=== PATIENT | female | born 1975 | race Caucasian/White ===

== ENCOUNTER 2021-03-28 09:15 | Outpatient (REF) | payer OTHER, SELFPAY ==
[2021-03-28 09:54] LABS: IDNOW Serial# 9DD0AD1C
[2021-03-28 09:55] LABS: COVID-19 Test Negative (Negative)
== END 2021-03-28 09:16 | disposition home or self-care (01) ==
LOC: HO.LAB 09:15
PROVIDERS: Visit Provider Internal Medicine
DX: Z20.822 Contact with and (suspected) exposure to COVID-19 (principal)
CPT/HCPCS: 36415; 87635; C9803

== ENCOUNTER 2023-06-20 11:06 | Emergency (ER) | payer OTHER, SELFPAY ==
--- NOTE | ~2023-06-20 | US_ITS ---
EXAMINATION: US ABDOMEN LIMITED CLINICAL INFORMATION: Right upper quadrant pain. COMPARISON: None available. TECHNIQUE: Real-time imaging of the right upper quadrant abdominal viscera. FINDINGS: PANCREAS: The visualized portion of the pancreas head and body are normal, portion of the pancreatic body and tail, not visualized are obscured by bowel gas. LIVER: Normal. The liver is normal in size. The liver contour is normal. Increased echogenicity of the liver parenchyma, this can be seen in the setting of hepatic steatosis or liver parenchymal disease. No focal hepatic lesion. There is no intrahepatic biliary duct dilatation seen. GALLBLADDER: Normal. The gallbladder is physiologically distended without evidence of stones, sludge, polyps, wall thickening or pericholecystic fluid. COMMON BILE DUCT: Normal in caliber measuring 0.7 cm in diameter. RIGHT KIDNEY: Normal. No hydronephrosis. No renal calculi or focal parenchymal lesions. The kidney measures 10.2 cm in maximum dimension. FREE FLUID: None. US/US abdomen limited IMPRESSION: * No ultrasound evidence of gallbladder disease or gallstones. * Increased echogenicity of the liver parenchyma, this can be seen in the setting of hepatic steatosis or liver parenchymal disease.
--- NOTE | ~2023-06-20 | XR_ITS ---
EXAMINATION: XR chest 1V CLINICAL INFORMATION: Reason for Exam pain COMPARISON: None TECHNIQUE: XR chest 1V Tubes and lines: None Lungs and pleura: Both lungs are clear. Heart and mediastinum: The mediastinum is within normal limits.. Bones/soft tissue: Skeletal structures included are normal for patient's age. XR/XR chest 1V IMPRESSION: No radiographic evidence of acute cardiopulmonary disease.
--- NOTE | 2023-06-20 11:13 | PC.NURSE ---
bilingual interpreter called
--- NOTE | 2023-06-20 11:15 | ED.GENADULT ---
HPI - General Adult General Chief complaint: Abdominal Pain Stated complaint: abd pain Time Seen by Provider: 06/20/23 11:31 Source: patient Mode of arrival: ambulatory Limitations: no limitations History of Present Illness HPI narrative: 47 yo female with PMH of GERD, CTR - recently by Dr. Hines, who notes she has had R sided abdominal pain that feels pulsating at times with heat then she notes it hurts to move or touch. No rash, no n/v/d. She just had RUQ US by her PCP this week and it showed fatty liver but nothing else. She has had hysterectomy and gallbladder removal. She notes it hurts to get up from the bed in her abdomen but denies heavy lifting or trauma. She states she just woke up like this on Thursday. MD complaint: abdominal pain Onset (ago): day(s) (6) Location: abdomen Radiation: non-radiation Severity: moderate Quality: stabbing, aching and other (burning) Pain Consistency: intermittent Relieving factors: rest Exacerbating factors: movement Associated symptoms: nausea/vomiting Treatments prior to arrival: none Related Data Allergies Allergy/AdvReac Type Severity Reaction Status Date / Time ondansetron [From Zofran] Allergy Intermediate Rash Verified 06/20/23 11:17 Review of Systems Review of Systems: Constitutional : No Weight loss, No Fever, No Chills ENT/Mouth : No sore throat, No Rhinorrhea Eyes: No Swelling, No Redness Cardiovascular : No Chest Pain, No SOB, NoEdema Respiratory : No Cough, No Sputum, No Wheezing Gastrointestinal : Positive Nausea, no Vomiting, no Diarrhea, positive abdominal Pain, No Hematochezia, No Melena Genitourinary : No Dysuria, No Urinary Frequency, No Hematuria, No Urgency Musculoskeletal : No joint pain, No Myalgias, No Joint Swelling Skin : No Skin Lesions, No rash Neuro : No Weakness, No Numbness, No Dizziness, No Headache Psych : No Anxiety/Panic, No Depression Heme/Lymph: No Bruising, No Lymphadenopathy Endocrine : No Polyuria, No Polydipsia All other systems reviewed and are negative. [facility] Social History Social History Advance Directives: No Physical Exam ED Vital Signs: Vital Signs - 24 hr 06/20/23 11:17 06/20/23 12:00 Temperature 97.1 F Pulse Rate 89 Respiratory Rate 18 20 Blood Pressure 108/71 102/55 L Pulse Oximetry 99 98 Oxygen Delivery Method Room Air Room Air BMI result Body Mass Index 30.4 Appearance: Alert. Oriented X3. No acute distress. Eyes: Pupils equal, round and reactive to light. ENT: Pharynx normal. Neck: Normal inspection. Neck supple. CVS: Normal heart rate and rhythm. Pulses normal. Respiratory: No respiratory distress. Breath sounds normal. Abdomen: Soft and ttp on R abdomen no rash or mass felt, no rebound no pulsations felt Skin: Skin warm and dry. Normal skin color. Normal skin turgor. Extremities: No lower extremity edema. No calf ttp Neuro: Oriented X 3. No motor deficit. No sensory deficit. Course Course Course Narrative: This is an RME: Additional HPI, ROS, PE not included below will be deferred to primary provider. This is a [id number] presenting to the emergency department with complaints of right sided abdominal pain x 1 week. Patient reports that the pain occasionally radiates to her umbilicus and pulse aids.She went to a PCP's office where they performed an ultrasound which revealed a fatty liver but was told this wouldn't cause her to have this pain she was started on Bentyl. She states that she has had nausea, no vomiting. One episode of diarrhea on , otherwise is having normal bowel movements. Had a cholecystectomy. Abdomen is soft nontender. No urinary symptoms. Plan: Labs, UA, ultrasound Medications Administered Discontinued Medications Generic Name Dose Route Start Last Admin Trade Name Freq PRN Reason Stop Dose Admin Morphine Sulfate 15 mg 06/20/23 11:45 06/20/23 11:52 Morphine Sulfate Immed Release 15 Mg Tablet PO 06/20/23 11:46 15 mg ONCE ONE Administration Medical Decision Making Medical Decision Making [facility] Narrative: 47 yo female with PMH of fibromyalgia here with c/o 1 week or R sided abdominal pain and nausea but no other symptoms not pleuritic no CP/SOB no URI symptoms no change in stool notes it hurts to move. She notes no trauma to abdomen. She notes this has never happened before. Just told she has a fatty liver. Differential Diagnosis Differential Diagnoses: The differential diagnosis associated with the presentation includes renal colic, abdominal wall strain, abdominal pain Admission/Observation Consideration of admission/observation: Escalation of care including admission/observation considered work up negative at this time no RLQ to suggest appendicitis on repeat abdominal exams Lab Data MDM Lab Attestation statement: I reviewed the patient's lab results. 06/20/23 11:28 06/20/23 11:28 Labs: Lab Results 06/20/23 06/20/23 06/20/23 Range/Units 11:28 11:54 13:55 WBC 3.8 L (4.8-10.8) X10*3/uL RBC 4.76 (4.20-5.50) X10*6/uL Hgb 14.4 (12.0-16.0) g/dl Hct 42.7 (37.0-47.0) % MCV 89.7 (80.0-98.0) fL MCH 30.3 (27.0-33.0) pg MCHC 33.7 (31.0-35.0) g/dl RDW 12.7 (11.0-16.0) % Plt Count 254 (160-400) X10*3/uL MPV 9.9 (9.4-12.3) fL Immature Gran % (Auto) 0.0 (0.0-0.4) % Neut % (Auto) 48.3 (45-73) % Lymph % (Auto) 42.5 H (20-40) % [place] % (Auto) 8.4 (2-11) % Eos % (Auto) 0.3 (0-4) % Baso % (Auto) 0.5 (0-2) % Lymph # (Auto) 1.6 (1.2-4.9) X10*3/uL [place] # (Auto) 0.3 (0.1-1.2) X10*3/uL Eos # (Auto) 0.0 (0.0-0.4) X10*3/uL Baso # (Auto) 0.0 (0.0-0.2) X10*3/uL Abs Immat Gran (auto) 0.00 (0.00-0.03) X10*3/uL Absolute Neuts (auto) 1.8 L (2.0-8.3) x10*3/uL Absolute Nucleated RBC 0.000 (0.0-0.012) X10*3/uL Nucleated RBC % (auto) 0.0 (0.0-0.2) /100WBC D-Dimer High Sensitivty < 150 NG/ML Sodium 139 (135-145) mmol/L Potassium 3.7 (3.3-5.1) mmol/L Chloride 106 (96-108) mmol/L Carbon Dioxide 28 (22-29) mmol/L Anion Gap 9 L (12-20) BUN 8 L (9-16) mg/dL Creatinine 0.82 (0.5-1.4) mg/dL Estim Creat Clear Calc 83.7 Estimated GFR > 60 Random Glucose 98 (60-115) mg/dL Calcium 9.2 (8.4-10.2) mg/dL Total Bilirubin 0.8 (0.0-1.0) mg/dL Direct Bilirubin 0.2 (0.0-0.5) mg/dL AST 15 (5-31) U/L ALT 9 (0-31) U/L Alkaline Phosphatase 62 (39-117) U/L Total Protein 7.5 (6.5-8.0) g/dL Albumin 4.2 (3.5-5.0) g/dL Lipase 14 (8-78) U/L Urine Color Yellow Urine Appearance Clear Urine pH 5.5 (5.0-9.0) Ur Specific Rosie 1.025 (1.005-1.025) Urine Protein Trace (Neg-Trace) mg/dL Urine Glucose (UA) Negative (Negative) mg/dL Urine Ketones Negative (Negative) mg/dL Urine Blood Moderate (2+) H (Negative) Urine Nitrite Negative (Negative) Ur Leukocyte Esterase Negative (Negative) Urine RBC 11-20 H (0-2) /HPF Urine WBC 0-5 (0-5) /HPF Ur Squamous Epith Cells 11-20 (0-2) /HPF Urine Bacteria 1+ (None Seen) Hyaline Casts 0-2 (0-2) /LPF Influenza Type A (PCR) NEGATIVE (Negative) Influenza Type B (PCR) NEGATIVE (Negative) RSV RNA Qual (PCR) NEGATIVE (Negative) SARS-CoV-2 RNA (RT-PCR) NEGATIVE (Negative) Independent Interpretation I performed an independent interpretation of an: Plain X-Ray (no pneumonia) and Ultrasound (fatty liver) Radiology Impression Discussion of test interpretation with radiology: I have reviewed the radiologist's reading. External Record Review External record reviewed: Outpatient record Discharge Plan Discharge Clinical Impression: Abdominal pain Patient Disposition: Home, Self-Care Instructions: Abdominal Pain (ED) Additional Instructions: return for worsening pain, fevers, vomiting, diarrhea, please follow up with your doctor next week. you had trace blood in your urine but no stones in the kidney. test of the liver and pancreas were normal. no blood clot, chest xray was normal Si regresa si el dolor empeora, tiene fiebre, v?lindsey o diarrea, consulte con orta m?dico la pr?xima semana. ten?a trazas de tyler en la orina vale no ten?a c?lculos en el ri??n. Las pruebas del h?gado y del p?ncreas fueron normales. sin co?gulos de tyler, la radiograf?a de t?rax fue normal Print Language: Polish
[2023-06-20 11:17] VITALS: BP 108/71; PULSE 89; RESP 18; TEMP 36.2; O2SAT 99; BMI 30.4
[2023-06-20 11:34] LABS: MANUAL DIFF FLAG NO
[2023-06-20 11:35] LABS: Basophils Percent Auto 0.5 % (0-2); Eosinophils Percent Auto 0.3 % (0-4); Hematocrit 42.7 % (37.0-47.0); Hemoglobin 14.4 g/dl (12.0-16.0); Lymphocytes Absolute Auto 1.6 X10*3/uL (1.2-4.9); Lymphocytes Percent Auto 42.5 % (20-40); Mean Corpuscular HGB Conc 33.7 g/dl (31.0-35.0); Mean Corpuscular Hemoglobin 30.3 pg (27.0-33.0); Mean Corpuscular Volume 89.7 fL (80.0-98.0); Mean Platelet Volume 9.9 fL (9.4-12.3); Monocytes Absolute Auto 0.3 X10*3/uL (0.1-1.2); Monocytes Percent Auto 8.4 % (2-11); Neutrophils Absolute Auto 1.8 x10*3/uL (2.0-8.3); Neutrophils Percent Auto 48.3 % (45-73); Platelet Count 254 X10*3/uL (160-400); Red Blood Count 4.76 X10*6/uL (4.20-5.50); Red Cell Distribution Width 12.7 % (11.0-16.0); White Blood Count 3.8 X10*3/uL (4.8-10.8)
--- NOTE | 2023-06-20 11:36 | PC.NURSE ---
Patient reports woe up 1 week ago with right sided abdominal pain. Patient denies heavy lifting but states recently had right hand carpel tunnel system. Reports some nausea but denies sob, chest pain, or vomiting or diarrhea.
[2023-06-20 11:51] LABS: Alanine Aminotransferase 9 U/L (0-31); Albumin Level 4.2 g/dL (3.5-5.0); Alkaline Phosphatase 62 U/L (39-117); Anion Gap 9 (12-20); Aspartate Amino Transferase 15 U/L (5-31); Bilirubin Direct 0.2 mg/dL (0.0-0.5); Bilirubin Total 0.8 mg/dL (0.0-1.0); Blood Urea Nitrogen 8 mg/dL (9-16); Calcium 9.2 mg/dL (8.4-10.2); Carbon Dioxide 28 mmol/L (22-29); Chloride 106 mmol/L (96-108); Creatinine Clr Calc Pharmacy 83.7; Estimated Glomerular Filt Rate > 60; Glucose Random 98 mg/dL (60-115); Lipase 14 U/L (8-78); Potassium 3.7 mmol/L (3.3-5.1); Sodium 139 mmol/L (135-145); Total Protein 7.5 g/dL (6.5-8.0)
[2023-06-20] MEDS: Morphine Sulfate Immed Release 15 MG TABLET PO (11:52)
[2023-06-20 12:00] VITALS: BP 102/55; RESP 20; O2SAT 98
[2023-06-20 12:02] LABS: Appearance Urine Clear; Color Urine Yellow; Glucose Urine UA Negative (Negative); Leukocyte Esterase Urine Negative (Negative); Nitrite Urine Negative (Negative); PH 5.5 (5.0-9.0); Specific Gravity - Urine 1.025 (1.005-1.025); UMIC TRIGGER UACC YES; Urine Blood Moderate (2+) (Negative); Urine Ketones Negative (Negative); Urine Protein Trace mg/dL (Neg-Trace)
[2023-06-20 12:07] LABS: Bacteria Urine 1+ (None Seen); Hyaline Casts Urine 0-2 /LPF (0-2); WBC Urine 0-5 /HPF (0-5)
[2023-06-20 12:11] LABS: Influenza A PCR NEGATIVE (Negative); Influenza B PCR NEGATIVE (Negative); Resp Syncy Virus RNA Qual PCR NEGATIVE (Negative); SARS COV2 PCR INHOUSE NEGATIVE (Negative)
[2023-06-20 14:08] LABS: D Dimer High Sensitivity < 150 NG/ML
== END 2023-06-20 15:45 | disposition home or self-care (01) ==
PROVIDERS: Physician Assistant Medical; Emergency Provider Emergency Medicine; PCP Internal Medicine
DX: R10.9 Unspecified abdominal pain (principal); Z20.822 Contact with and (suspected) exposure to COVID-19; Z20.828 Contact with and (suspected) exposure to other viral communicable diseases; R11.0 Nausea; Z90.710 Acquired absence of both cervix and uterus; Z90.49 Acquired absence of other specified parts of digestive tract
CPT/HCPCS: 0241U; 36415; 71045; 76705; 80048; 80076; 81001; 81003; 83690; 85025; 85379; 99284

== ENCOUNTER 2025-01-24 16:05 | Outpatient (REF) | payer OTHER, SELFPAY ==
--- NOTE | ~2025-01-24 | CT_ITS ---
EXAMINATION: CT HEAD WITHOUT CONTRAST CLINICAL INFORMATION: Mild cognitive impairment COMPARISON: None available. TECHNIQUE: Contiguous axial imaging was performed from the skull base to vertex without intravenous administration of contrast. This CT examination was performed using dose optimization techniques as appropriate, variously including the following: *Automated exposure control *Adjustment of mA and/or kV according to patient size (this includes techniques or standardized protocols for targeted exams where dose is matched to indication/reason for exam; i.e. extremities or head) *Use of iterative reconstruction technique DLP: 755 mGY*cm FINDINGS: There is no acute ischemic change. There is no intracranial hemorrhage. There is no mass-effect or midline shift. Basal cisterns and ventricles are within normal limits for age/cerebral volume. Orbits are symmetrical and unremarkable. Paranasal sinuses and mastoid air cells are pneumatized. There are no bony abnormalities. CT/CT head/brain wo IV con IMPRESSION: No acute intracranial abnormality. Electronically signed by: Vivek Colby MD 01/24/2025 04:45 PM EDT
--- OUTSIDE RECORDS SUMMARY | 2025-01-24 18:56 | XMS_ITS | Clinical Summary ---
Author Organization 175 [facility] Address [address] [place] [address] Phone Care Team Providers Care Equipment Operating Engineer Name Role Phone Yeimy Hammond MD Primary Care Prov ider Allergies Active Allergy Reactions Criticality Noted Date Comments Ondansetron Rash 11/13/2021 IV only Medications busPIRone (BUSPAR) 10 mg tablet Take 1 tablet (10 mg total) by mouth 2 (two) times a day. 4 Active DULoxetine (CYMBALTA) [address] capsule Take 1 capsule (60 mg total) by mouth. 4 Active simethicone (MYLICON) 125 mg chewable tablet Chew 1 tablet (125 mg total). 3 Active sucralfate (CARAFATE) 100 mg/mL suspension Take 10 mL (1 g total) by mouth. 4 Active pregabalin (LYRICA) 100 mg capsule Take 1 capsule (100 mg total) by mouth. 4 Active pregabalin (LYRICA) 25 mg capsule 4 Active cholecalciferol (VITAMIN D-3) 50 mcg (2,000 unit) tablet Take 1 tablet (2,000 Units total) by mouth 1 (one) time each day. 90 tablet 1 4 Active diclofenac (VOLTAREN) 50 mg EC tabletIndicatio ns:Other articular cartilage disorders, left shoulder,Unspec ified disorder of synovium and tendon, left shoulder TAKE 1 TABLET BY MOUTH 2 TIMES DAILY FOR 90 DAYS. 60 tablet 2 5 Active lidocaine (LIDODERM) 5 % patch Remove & discard patch within 12 hours or as directed by MD.APPLY 1 TO 2 PATCHES TOPICALLY DAILY NEEDED FOR PAIN. REMOVE PATCHES AFTER 12 HRS 90 patch 1 5 Active pantoprazole (PROTONIX) 40 mg EC tablet Take 1 tablet (40 mg total) by mouth 1 (one) time each day. 90 tablet 1 5 Active famotidine (PEPCID) 20 mg tablet TAKE 1 TABLET BY MOUTH EVERYDAY AT BEDTIME 90 tablet 1 5 Active meclizine (ANTIVERT) 12.5 mg tablet Take 1 tablet (12.5 mg total) by mouth 3 (three) times a day if needed for dizziness. 90 tablet 5 Active SUMAtriptan (IMITREX) 25 mg tablet Take 1 tablet (25 mg total) by mouth 1 (one) time if needed for migraine. May repeat dose once in 2 hours if no relief. Do not exceed 2 doses in 24 hours. 9 tablet 5 5 Active Active Problems Problem Noted Date Diagnosed Date Urinary incontinence 10/27/2024 Postcoital bleeding 10/27/2024 History of laparoscopic cholecystectomy 10/28/19 25 H/O total hysterectomy 10/27/2024 Acne 10/27/2024 Back pain 10/27/2024 Abnormal uterine bleeding 10/27/2024 Dysmenorrhea 10/27/2024 Calcified granuloma of lung 08/12/2024 Adhesive capsulitis of left shoulder 06/06/2024 Vitamin D deficiency 05/24/2024 Chronic daily headache 05/24/2024 Migraines 05/19/2024 Assessment & Plan (12/26/2024 9:30 PM EDT): Manages with Sumatriptan, she follows with Neurology. Recommended to keep the appts with the specialist. Continue same medication. Fibromyalgia affecting multiple sites 02/09/2024 Overview (05/19/2024): Last Assessment & Plan: This exam was performed in conjunction with [facility] language services stenographer secretary Maddy #[id number]. Ms. Luis Alberto Duran is well-known to me from a C5-6, C6-7 artificial disc replacement with [employer] on 10/21/2021. She states that her neck pain only improved a little bit afterwards and she has had persistent pain bilaterally over to her shoulders with paresthesias in the arms and hands. Since then, she has had bilateral shoulder surgery, bilateral CTR and a left ulnar nerve release. She has been diagnosed with fibromyalgia and was started on gabapentin by Dr. Starr. She states that it made her quite drowsy and she could barely get out of bed so her dose has been reduced to 100 mg 3 times daily. She remains drowsy from it. Her recent upper extremity EMG on 12/03/2023 was essentially normal with no evidence of plexopathy, no cervical radiculopathy and no evidence of conduction slowing of the radial, medial or ulnar nerves. On exam, there is no step-off, deformity or tenderness along the posterior cervical spine. Rotation is 75 degrees to the right, 60 degrees to the left. Strength is 5 out of 5 though notably with poor effort particularly in tricep testing and handgrip. She rises from the chair easily, gait is steady, there were no myelopathic findings. Review of the cervical spine MRI dated 02/02/2024 shows magnetic artifact from the artificial disks at C5-6 and C6-7. There is maintenance of the normal lordosis with no evidence of disc herniation, central or foraminal stenosis. I reviewed this information in detail with Ms. Duong and do not believe she has a cervical radiculopathy. There is no residual spondylosis, she has great alignment and normal disc height at the untreated levels. I believe her residual pain is likely related to her fibromyalgia and recommended switching to Lyrica as the primary treatment. It is approved for fibromyalgia and should not cause the drowsiness she experiences with gabapentin. We discussed a schedule for transitioning off of gabapentin while starting the Lyrica. RICHI on CPAP 01/26/2024 Cubital tunnel syndrome of both upper extremitie s 02/03/2023 NAFLD (nonalcoholic fatty liver disease) 023 Neck pain 04/08/2022 Cervical spondylosis 08/12/2021 Overview (05/19/2024): Last Assessment & Plan: Ms. Sahu continues to suffer from neck pain. She was better after her two- level cervical arthroplasty but developed recurrent pain about 6 weeks ago. She really did not have any improvement with physical therapy. She is scheduled for right shoulder surgery on June 12 and waiting for an appointment from the orthopedic doctor for an EMG to evaluate her for carpal tunnel syndrome. She desires a new MRI but we both agreed that it made the most sense to wait until after her shoulder surgery. At this point even if it showed something, we would wait for any surgical treatment until after she heals from the shoulder surgery. She understands and will be patient. We will see her in follow-up at the end of June. If her symptoms persist we will get an MRI at that time. In the meantime I asked her to check with her orthopedic surgeon and if it was okay encouraged her to take a nonsteroidal for her neck pain. 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 12/19/2024 Subacromial impingement of right shoulder 08/08/2022 12/19/2024 Rotator cuff arthropathy of both shoulders 04/04/2022 12/19/2024 Encounters Date Type Department Care Team Description 01/16/2025 2:30 PM EDT Evaluation [facility] [address] [phone] Alex Joy PT Chronic pain of right knee 12/19/2024 11:30 AM EDT Office Visit Adult Medicine [address] [phone] Yeimy Larsen MD Chronic pain of right knee (Primary Dx); Migraine without aura and without status migrainosus, not intractable 11/29/2024 11:30 AM EDT Treatment [facility] [address] [phone] Adelina Choudhary, PT Biceps tendinitis of right upper extremity (Primary Dx); Adhesive capsulitis of left shoulder 11/23/2024 1:26 PM EDT - 11/23/2024 11:59 PM EDT Hospital Encounter Radiology Department - [address] [phone] Other abnormal and inconclusive findings on diagnostic imaging of breast Discharge Disposition: Home or Self Care 11/22/2024 11:30 AM EDT Treatment [facility] [address] [phone] Christopher Jhaveri, CARBIDE DIE MAKER Biceps tendinitis of right upper extremity (Primary Dx) 11/15/2024 11:00 AM EDT Treatment [address] [phone] Christopher Jhaveri, CARBIDE DIE MAKER Biceps tendinitis of right upper extremity (Primary Dx) 11/09/2024 12:30 PM EDT Treatment [facility] [address] [phone] Christopher Jhaveri, CARBIDE DIE MAKER Biceps tendinitis of right upper extremity (Primary Dx); Adhesive capsulitis of left shoulder 11/09/2024 11:15 AM EDT Office Visit Orthopedic Surgery [facility] [address] [facility] [address] [place] [phone] Amado Leblanc MD Left shoulder pain (Primary Dx); Biceps tendinitis of right upper extremity 10/31/2024 11:00 AM EDT Treatment [facility] [address] [phone] Adelina Choudhary, PT Biceps tendinitis of right upper extremity (Primary Dx); Adhesive capsulitis of left shoulder 10/29/2024 11:15 AM EDT Office Visit Walk-In Clinic - [address] [phone] Blair Reddy PA Non-recurrent acute suppurative otitis media of left ear without spontaneous rupture of tympanic membrane (Primary Dx) 10/28/2024 Telephone Adult Medicine [address] [phone] Mandie Laguerre PA 10/27/2024 8:30 AM EDT Office Visit Adult Medicine [address] [phone] Mandie Laguerre PA Routine general medical examination at a health care facility (Primary Dx); Need for pneumococcal vaccination; Memory loss, short term 10/26/2024 11:00 AM EDT Treatment [address] [phone] Jack Choudharyca, PT Biceps tendinitis of right upper extremity (Primary Dx); Adhesive capsulitis of left shoulder 10/24/2024 11:00 AM EDT Treatment [address] [phone] Jack Choudharyca, PT Biceps tendinitis of right upper extremity (Primary Dx); Adhesive capsulitis of left shoulder from Last 3 Months Immunizations Name Administration Dates Next Due Diptheria & Tetanus, 6wks to less than 7yo 01/10/2009 Hepatitis A-Hepatitis B Adul t (Twinrix) 18yo and older 02/07/2009 Hepatitis B (Fviqzfi-Y-Frsah , Recombivax HB-Adult) 19yo and older 03/17/2012,11/11/2011,09/12/2011 Influenza Quadravalent, MDCK , 0.5ml, preservative free (Flucelvax) 6mo and older 08/27/2022,07/19/2019 Influenza Whole 05/21/2007 Influenza trivalent, 0.5mL, preservative free (Fluarix; FluLaval; Fluzone) ages 6mo and older (Afluria) 3 years and older 05/10/2020 Influenza trivalent, with preservative (Fluzone; Afluria) 6mo and older 08/09/2015,06/12/2014,04/21/2013,2010 PPD Test 05/29/2020,05/09/2020,02/17/2017 Pneumococcal conjugate 20 va lent (Prevnar 20, PCV 20) 2mo and older 10/27/2024 Td Tetanus diptheria (Tdvax) 7yo and older 10/27/2024 Tdap Tetanus diptheria acell ular pertussis (Boostrix; Adacel) 7yo and older 09/01/2014 Surgical History Surgery Date Site/Laterality Comments CHOLECYSTECTOMY 07/2014 TUBAL LIGATION OTHER SURGICAL HISTORY 11/2015 NC TOTAL ABDOMINAL HYSTERECT W/WO RMVL TUBE OVARY; fibroids/menorrhagia UPPER GASTROINTESTINAL ENDOSCOPY 01/03/2020 Negative, biopsy pending CARPAL TUNNEL RELEASE 06/2023 Right ROTATOR CUFF REPAIR 11/17/2023 Left RCR with augmentation, SAD, labral debridement SHOULDER SURGERY 06/2022 Right Shoulder arthroscopy, distal clavicle excision, RCR, SD Medical History Medical History Date Comments Migraines DX:Migraines; CO MMENT: with [facility] Nephrolithiasis 01/26/2017 DX:Nephrolithias is; COMMENT: went to ED end Jul 2021, ? passed stone, q1-2 yrs Chronic back pain 02/12/2017 DX:Chronic chano k pain Obesity (BMI 30-39.9) 04/21/2018 DX:Obesity (BMI 30-39.9) Epigastric pain DX:Epigastric pa in Heartburn DX:Heartburn Gastroenteritis DX:Gastroenterit is Change in bowel habits DX:Change in bowel habits Dyspepsia DX:Dyspepsia Covid 07/24/2021 DX:COVID Epigastric pain DX:Epigastric pa in Gassiness DX:Gassiness Right upper quadrant pain DX:Rig ht upper quadrant pain Fatty liver DX:Fatty liver Gassiness DX:Gassiness History of fibromyalgia DX:Histo ry of fibromyalgia TMJ syndrome 10/27/2024 Rotator cuff arthropathy of both shoulders 04/04/2022 Subacromial impingement of r ight shoulder 08/08/2022 Family History Medical History Relation Name Comments Drug abuse Brother 1 No Known Problems Brother 2 No Known Problems Daughter Diabetes Father cirrhosis No Known Problems Maternal Grandfather No Known Problems Maternal Grandmother Hypertension Mother lung cancer; sm oker; valve problem Ovarian cancer Other cousin unsure age No Known Problems Paternal Grandfather Diabetes Paternal Grandmother Seizures Sister 1 Heart attack Sister 2 HIV Sister 3 No Known Problems Son Relation Name Status Comments Brother 1 Brother 2 Alive Daughter Alive Father (Age 70) Maternal Grandfather Maternal Grandmother Mother (Age 78) Other cousin unsure age Paternal Grandfather Paternal Grandmother Sister 1 Alive Sister 2 Sister 3 Son Alive Social History Tobacco Use Types Packs/Day Years Used Date Smoking Tobacco: Never Smokeless Tobacco: Never Tobacco Cessation:Counseling Given: Not Answered Alcohol Use Standard Drinks/Week Comments No 0 (1 standard drink = 0.6 oz pur e alcohol) Housing Instability Answer Date Recorde d Are you worried that in the next 2 months you may not have stable housing? No 10/27/2024 Food Access & Nutrition Answer Date Rec orded Do you have access to a vari ety of food including fruits and vegetables? Yes 10/27/2024 Access to Healthcare Answer Date Record ed Within the last 3 months, ho w many times did you visit the emergency department for your medical care? 0 10/27/2024 Health Literacy Answer Date Recorded How often do you need to hav e someone help you when you read instructions, pamphlets, or other written material from your doctor or pharmacy? Never 10/27/2024 Caregiver: How often do you need to have someone help you when you read instructions, pamphlets, or other written material from your doctor or pharmacy? Not on file 10/27/2024 Financial Risk Answer Date Recorded How hard is it for you to pa y for the very basics like food, housing, medical care, and air conditioning / heating? Somewhat hard 10/27/2024 Transportation Answer Date Recorded Has the lack of transportati on kept you from meetings, work, or from getting things needed for daily living? No Has the lack of transportati on kept you from medical appointments or from getting medications? No 10/27/2024 Social Isolation Answer Date Recorded How often do you feel lonely or isolated from th ose around you? Never 10/27/2024 Food Risk Answer Date Recorded Within the past 12 months we worried whether our food would run out before we got money to buy more. Never true 10/27/2024 Within the past 12 months th e food we bought just didn't last and we didn't have money to get more. Never true 10/27/2024 Dependent Care Answer Date Recorded Do you need help finding or paying for care for your loved ones. For example, child care attendant or elderly care for an older adult? No 10/27/2024 Education Answer Date Recorded Do you think completing more education or training, like finishing a GED, going to college, or learning a trade, would be helpful for you? No 10/27/2024 Employment and Income Answer Date Recor ded During the last four weeks, have you been actively looking for work? No 10/27/2024 Living Situation Answer Date Recorded What is your living situation? 0 10/27/2024 Comments No Sex and Gender Information Value Date Recorded Sex Assigned at Female 01/16/2025 3:02 PM EDT Legal Sex Female 5:42 AM EST Gender Identity Female 01/16/2025 3:02 PM EDT Sexual Orientation Straight 01/16/2025 3: 02 PM EDT Occupation Industry Job Start Date Job End Date unemployed Not on file Not on file Not on file Obstetrics History Para Term AB IAB SAB Ectopic Multiple Livin g Live Births 2 2 2 2 2 Date Outcome GA Total Labor Labor/2nd/3rd Weight Sex Type Anes PTL Elida A1 A5 Name Clin Term Vag-S pont Living Term Living Last Filed Vital Signs Vital Sign Reading Time Taken Comments Blood Pressure 95/60 12/19/2024 11:30 AM EDT Pulse 73 12/19/2024 11:30 AM EDT Temperature 36.1 C (97 F) 12/19/2024 11:30 AM EDT Respiratory Rate 16 12/19/2024 11:3 0 AM EDT Oxygen Saturation 99% 10/29/2024 11: 03 AM EDT Inhaled Oxygen Concentration - - Weight 74.8 kg (164 lb 12.8 oz) 025 11:30 AM EDT Height 160 cm (5' 3 ) 12/19/2024 11:30 AM EDT Body Mass Index 29.19 12/19/2024 11:30 AM EDT Plan of Treatment Upcoming Encounters Date Type Department Care Team (Late st Contact Info) Description 01/31/2025 12:30 PM EDT Treatment [address] [phone] Alex Joy, PT 02/07/2025 11:30 AM EDT Treatment [facility] [address] [phone] Christopher Jhaveri, CARBIDE DIE MAKER 02/09/2025 11:30 AM EDT Treatment [address] [phone] Christopher Jhaveri, CARBIDE DIE MAKER 02/13/2025 11:30 AM EDT Treatment [facility] [address] [phone] Christopher Jhaveri, CARBIDE DIE MAKER 02/15/2025 11:30 AM EDT Treatment [address] [phone] Christopher Jhaveri, CARBIDE DIE MAKER 02/20/2025 11:30 AM EDT Treatment [address] [phone] Christopher Jhaveri, CARBIDE DIE MAKER 02/22/2025 11:30 AM EDT Treatment [address] [phone] Alex Joy, PT 02/27/2025 11:00 AM EDT Treatment [address] [phone] Alex Joy, PT 05/25/2025 1:45 PM EDT Appointment Radiology Department - [address] [phone] 11/02/2025 3:00 PM EDT Office Visit Adult Medicine [address] [phone] Yeimy Hammond MD [address] [place] [address] Health Maintenance Due Date Last Done Comments Hepatitis A Vaccines (2 of 3 - Hep A Twinrix risk 3-dose series) 03/07/2009 02/07/2009 COVID-19 Vaccine (2 - Moderna risk series) 04/26/2021 03/29/2021 Colorectal Cancer Screening: Colonoscopy 07/12/2022 Depression Screening 01/25/2025 01/26/2024 Social Influencers of Health Screening 10/27/2025 10/27/2024 Breast Cancer Screening 08/25/2026 08/25/19, 08/25/2023, 02/06/2023, Additional history exists Cholesterol Screening (Lipid Panel) 10/27/2029 10/27/2024, 01/26/2024, 11/19/2022 DTaP,Tdap,and Td Vaccines (4 - Td or Tdap) 10/27/2034 10/27/2024, 09/01/2014, 01/10/2009 Hepatitis B Vaccines Completed 03/17/2012, 11/11/2011, 09/12/2011, Additional history exists Influenza Vaccine Discontinued 08/27/2022, , 07/19/2019, Additional history exists HIV Screening Completed 02/15/2024, 02/15/2024 Hepatitis C Screening Completed 02/15/2024 Pneumococcal Vaccine: Pediatrics (0 to 5 Years) and At-Risk Patients (6 to 64 Years) Completed 10/27/2024 HIB Vaccines Aged Out No longer eligi ble based on patient's age to complete this topic HPV Vaccines Aged Out No longer eligi ble based on patient's age to complete this topic IPV Vaccines Aged Out No longer eligi ble based on patient's age to complete this topic MMR Vaccines Aged Out No longer eligi ble based on patient's age to complete this topic Meningococcal ACWY Vaccine Aged Out N o longer eligible based on patient's age to complete this topic Meningococcal B Vaccine Aged Out No l onger eligible based on patient's age to complete this topic RSV Immunization Patients Under 20 months Aged Out No longer eligible based on patient's age to complete this topic Varicella Vaccines Aged Out No longer eligible based on patient's age to complete this topic Goals Goal Patient Goal Type Associated Problems Recent Progress Patient-Stated? Author Pt goal General On track( 025 1:19 PM EST) Yes Nichelle Chanel, OT Note: Improved L shldr motion and decreased pain STG (6 visits) General On track( 025 1:19 PM EST) No Nichelle Chanel, OT Note: 1. Indep HEP w/ progression 07/14 MET and ongoing 2. LUE AAROM flex to at least 120 for reaching to cabinet, style hair 07/14 MET after aggressive stretch 3. LUE AAROM scap to at least 120 for lateral reach (ie drive through window)07/14 MET after aggressive stretch 4. LUE AAROM IR to lumbar curve for clothing manage 07/14: In progress, to low lumbar 5. LUE AAROM ER to at least 45 for ease of donning jacket 07/14 In progress, currently 30 6. Upgraded: LUE AROM flex to at least 120 for reaching to cabinet, style hair 7. Upgraded: LUE AROM scap to at least 120 for lateral reach (ie drive through window) LTG (12 visits) General On track( 025 1:19 PM EST) No Nichelle Chanel, OT Note: Restored Indep BADL (hair style, dress), pain-tolerable ranges - Met Indep final HEP (contd self-stretch, strength, activity progression) - Met PT LTGs General No Alex Joy, PT Note: Pt will ascend/descend 12 steps with reciprocal pattern and no right knee pain Pt will complete 6-minute walk without right knee pain Pt will be independent with HEP Procedures Procedure Name Priority Date/Time Associated Diagnosis Comments US BREAST LIMITED LEFT Routine 11/23/2024 1:42 PM EDT Other abnormal and inconclusive findings on diagnostic imaging of breast XR SHOULDER 2+ VIEWS LEFT Routine 11/09/2024 11:36 AM EDT Left shoulder pain CBC WITH AUTO DIFFERENTIAL Routine 10/27/2024 9:34 AM EDT Fatty liver VITAMIN B12 Routine 10/27/2024 9:34 AM EDT Memory loss, short term FOLATE Routine 10/27/2024 9:34 AM EDT Memory loss, short term TREPONEMA PALLIDUM ANTIBODY WITH REFLEX TO RPR AND PARTICLE AGGLUTINATION Routine 10/27/2024 9:34 AM EDT Memory loss, short term VITAMIN D 1,25 DIHYDROXY Routine 10/27/2024 9:34 AM EDT Memory loss, short term SEDIMENTATION RATE Routine 10/27/2024 9: 34 AM EDT Memory loss, short term THYROID STIMULATING HORMONE WITH REFLEX TO FREE T4 AND FREE T3 Routine 10/27/2024 9:34 AM EDT Memory loss, short term LIPID PANEL WITH REFLEX TO DIRECT LDL Routine 10/27/2024 9:34 AM EDT Fatty liver COMPREHENSIVE METABOLIC PANEL Routine 10/27/2024 9:34 AM EDT Fatty liver CBC AND DIFFERENTIAL Routine 10/27/2024 9:34 AM EDT Fatty liver LIVER FIBROSIS, FIBROTEST-ACTITEST PANEL Routine 10/27/2024 9:34 AM EDT Fatty liver MG MAMMO DIGITAL DIAGNOSTIC W ELÍAS BILAT Routine 08/25/2024 1:42 PM EST Other abnormal and inconclusive findings on diagnostic imaging of breast HEPATITIS C SCREENING Routine 02/15/2024 HIV SCREENING Routine 02/15/2024 DEPRESSION SCREENING Routine 01/26/2024 from Last 3 Months or Most Recently Relevant to Health Maintenance Results * US Breast Limited Left (11/23/2024 1:42 PM EDT) Anatomical Region Laterality Modality Breast Left Ultrasound 11/23/2024 1:44 PM EDT Narrative 11/23/2024 1:53 PM EDT Targeted ultrasound of the right breast. HISTORY: Follow-up on complex cystic and solid component lesion at the 5 o'clock. Comparison with previous studies, latest from 08/25/2024. There is slight interval decrease in the size of the lesion at 5 o'clock which on today's study measures 0.6 x 0.3 x 0.6 cm as opposed to 0.9 x 0.3 x 0.7 cm. It also appears to be more cystic. No new focal abnormalities were identified. CONCLUSIONS: Probably benign mildly complex cystic lesion in the right breast at 5 o'clock. Six-month follow-up ultrasound is recommended. Findings were explained to the patient. Appointment is scheduled. BIRADS 3, probably benign findings. -------- FINAL REPORT -------- Dictated By: Nubia Aponte Dictated Date: 11/23/2024 13:44 ET Assigned Physician: Nubia Aponte Reviewed and Electronically Signed By: Nubia Aponte Signed Date: 11/23/2024 13:53 ET Workstation ID: [id number] Transcribed By: Self Edit Transcribed Date: 11/23/2024 13:44 ET Procedure Note Nubia Aponte MD - 11/23/2024 Targeted ultrasound of the right breast. HISTORY: Follow-up on complex cystic and solid component lesion at the 5o'clock. Comparison with previous studies, latest from 08/25/2024. There is slight interval decrease in the size of the lesion at 5 o'clockwhich on today's study measures 0.6 x 0.3 x 0.6 cm as opposed to 0.9 x 0.3x 0.7 cm. It also appears to be more cystic. No new focal abnormalitieswere identified. CONCLUSIONS: Probably benign mildly complex cystic lesion in the rightbreast at 5 o'clock. Six-month follow-up ultrasound is recommended.Findings were explained to the patient. Appointment is scheduled. BIRADS 3, probably benign findings. -------- FINAL REPORT -------- Dictated By: Nubia Aponte Dictated Date: 11/23/2024 13:44 ET Assigned Physician: Nubia Aponte Reviewed and Electronically Signed By: Nubia Aponte Signed Date: 11/23/2024 13:53 ET Workstation ID: [id number] Transcribed By: Self Edit Transcribed Date: 11/23/2024 13:44 ET us Yeimy Hammond MD IMG US PROCEDURES Final Result * XR Shoulder 2+ Views Left (11/09/2024 11:36 AM EDT) Anatomical Region Laterality Modality Upper Extremities, Shoulder Left Comp uted Radiography Narrative 11/09/2024 11:39 AM EDT X-rays November 09, 2024. Left shoulder AP, Grashey, Y lateral, axillary views. No acute osseous abnormalities. Good preservation of the glenohumeral articular cartilage. us Amado Leblanc MD IMG XR PROCEDURES Final Result * Treponema pallidum antibody with reflex to RPR and particle agglutination (10/27/2024 9:34 AM EDT) Pathologist [facility] T. Pallidum Antibodies Negative Negative LAB CHEMISTRY METHOD 10/27/2024 3:49 PM EDT [facility] Blood Venous blood specimen / Unknown Venipuncture / Unknown 10/27/2024 9:34 AM EDT 10/27/2024 9:34 AM EDT us Mandie [facility] LAB BLOOD ORDERABLES Final Resul t [facility] [address] [place] [address], [place] [phone] * Thyroid stimulating hormone with reflex to free t4 and free t3 (10/27/2024 9:34 AM EDT) TSH 2.32 0.40 - 4.00 mcIU/mL LAB CHEMISTRY METHOD 10/27/2024 3:39 PM EDT [facility] Blood Venous blood specimen / Unknown Venipuncture / Unknown 10/27/2024 9:34 AM EDT 10/27/2024 9:34 AM EDT us Mandie [facility] LAB BLOOD ORDERABLES Final Resul t Performing Organization Address City/[facility]/ZIP Co de Phone Number [facility] [address] [place] [address], [place] [phone] * (ABNORMAL) Lipid panel with reflex to direct LDL (10/27/2024 9:34 AM EDT) Cholesterol 193 0 - 200 mg/dL LAB CHEMISTRY METHOD 10/27/2024 2:48 PM EDT [facility] Triglycerides 212(H) 0 - 150 mg/dL LAB CHEMISTRY METHOD 10/27/2024 2:48 PM EDT [facility] HDL 51 >=40 mg/dL LAB CHEMISTRY METHOD 10/27/2024 2:48 PM EDT [facility] LDL Calculated 100 0 - 100 mg/dL LAB CHEMISTRY METHOD 10/27/2024 2:48 PM EDT [facility] VLDL Cholesterol Omkar 42.4 mg/dL LAB CHEMISTRY METHOD 10/27/2024 2:48 PM EDT [facility] Non HDL Chol. (LDL+VLDL) 142 <145 mg/dL LAB CHEMISTRY METHOD 10/27/2024 2:48 PM EDT [facility] Chol/HDL Ratio 3.8 0.0 - 4.4 LAB CHEMISTRY METHOD 10/27/2024 2:48 PM EDT [facility] Blood Venous blood specimen / Unknown Venipuncture / Unknown 10/27/2024 9:34 AM EDT 10/27/2024 9:34 AM EDT us Akbar [facility] LAB BLOOD ORDERABLES Final Resu lt [facility] [address] [place] [address], * Liver fibrosis, fibrotest-actitest panel (10/27/2024 9:34 AM EDT) Fibrosis Score 0.06 11/03/2024 7:39 PM EDT [facility] Fibrosis Stage F0 11/03/2024 7:39 PM EDT [facility] Fibrosis Interpretation SEE NOTE 11/03/2024 7:39 PM EDT [facility] Comment: no fibrosis Fibro Test Score (f) Metavir Score f>=0 and f<=0.21 : F0 (no fibrosis) f>0.21 and f<=0.27 : F0-F1 (no fibrosis) f>0.27 and f<=0.31 : F1 (minimal fibrosis) f>0.31 and f<=0.48 : F1-F2 (minimal fibrosis) f>0.48 and f<=0.58 : F2 (moderate fibrosis) f>0.58 and f<=0.72 : F3 (advanced fibrosis) f>0.72 and f<=0.74 : F3-F4 (advanced fibrosis) f>0.74 and f<=1.00 : F4 (severe fibrosis) Necroinflammat Activity Score 0.02 11/03/2024 7:39 PM EDT [facility] Necroinflammat Activity Grade A0 11/03/2024 7:39 PM EDT [facility] Necroinflammat Interpretation SEE NOTE 11/03/2024 7:39 PM EDT [facility] Comment: no activity ActiTest Score (a) Metavir Score a>=0 and a<=0.17 : A0 (no activity) a>0.17 and a<=0.29 : A0-A1 (no activity) a>0.29 and a<=0.36 : A1 (minimal activity) a>0.36 and a<=0.52 : A1-A2 (minimal activity) a>0.52 and a<=0.60 : A2 (significant activity) a>0.60 and a<=0.62 : A2-A3 (significant activity) a>0.62 and a<=1.00 : A3 (severe activity) Bilirubin Total 0.3 0.2 - 1.2 mg/dL 11/03/2024 7:39 PM EDT [facility] Gamma Glutamyl Transferase (GGT) 6 3 - 55 U/L 11/03/2024 7:39 PM EDT [facility] Alanine Aminotransferase (ALT) 11 6 - 29 U/L 11/03/2024 7:39 PM EDT [facility] Kmokh-4-[id number] n 185 106 - 279 mg/dL 11/03/2024 7:39 PM EDT [facility] Haptoglobin 55 43 - 212 mg/dL 11/03/2024 7:39 PM EDT [facility] Apolipoprotein A1 180 101 - 198 mg/dL 11/03/2024 7:39 PM EDT [facility] Reference ID [id number] 11/03/2024 7:39 PM EDT [facility] Footnote SEE NOTE 11/03/2024 7:39 PM EDT [facility] Comment: The reliability of results is dependent on compliance with the preanalytical and analytical conditions recommended by [facility]. The tests have to be deferred for: acute hemolysis, acute hepatitis, acute inflammation, extra hepatic cholestasis. The advice of a specialist should be sought for interpretation in chronic hemolysis and Gilbert's syndrome. The test interpretation is not validated in liver transplant patients. Isolated extreme values of one of the components should lead to caution in interpreting the results. In case of discordance between a biopsy result and a test, it is recommended to seek the advice of a specialist. The causes of these discordances could be due to a flaw of the test or to a flaw in the biopsy: i.e. a liver biopsy has a 33% variability rate for one fibrosis stage. FibroTest is interpretable for chronic hepatitis B and C, alcoholic and non alcoholic steatosis. ActiTest is interpretable for chronic hepatitis B and C. The performance characteristics have been determined by [employer] [place]. It has not been cleared or approved by the U.S. Food and Drug Administration. Performance characteristics refer to the analytical performance of the test. [employer], the associated logo, [employer] and all associated [employer] garcia are the registered trademarks of [employer]. All third libertarian garcai - (R) and (TM) - are the property of their respective owners. (C) 3448-4700 [employer]. All rights reserved. Test Performed at: [facility] [address] [place] [address] Dipak White MD, PhD, KIMBERLY Blood Venous blood specimen / Unknown Venipuncture / Unknown 10/27/2024 9:34 AM EDT 10/27/2024 9:34 AM EDT us Mandie Shade [facility] BLOOD ORDERABLES Final Resul t [facility] [address] [place] [address] * (ABNORMAL) CBC auto differential (10/27/2024 9:34 AM EDT) WBC 3.6(L) 4.8 - 10.8 K/mcL LAB HEMETOLOGY METHOD 10/27/2024 12:46 PM EDT [facility] RBC 4.20 3.80 - 4.80 M/mcL LAB HEMETOLOGY METHOD 10/27/2024 12:46 PM EDT [facility] Hemoglobin 13.0 11.5 - 16.0 g/dL LAB HEMETOLOGY METHOD 10/27/2024 12:46 PM EDT [facility] Hematocrit 40.3 35.0 - 47.0 % LAB HEMETOLOGY METHOD 10/27/2024 12:46 PM EDT [facility] MCV 96.2 79.0 - 98.0 FL LAB HEMETOLOGY METHOD 10/27/2024 12:46 PM EDT [facility] MCH 31.0 27.0 - 32.0 pcg LAB HEMETOLOGY METHOD 10/27/2024 12:46 PM EDT [facility] MCHC 32.3 32.0 - 37.0 g/dL LAB HEMETOLOGY METHOD 10/27/2024 12:46 PM EDT [facility] RDW 12.7 11.0 - 15.0 % LAB HEMETOLOGY METHOD 10/27/2024 12:46 PM [facility] Platelets 254 130 - 400 K/mcL LAB HEMETOLOGY METHOD 10/27/2024 12:46 PM [facility] MPV 10.5 7.0 - 11.0 FL LAB HEMETOLOGY METHOD 10/27/2024 12:46 PM [facility] NRBC 0.0 <1.0 % LAB HEMETOLOGY METHOD 10/27/2024 12:46 PM [facility] NRBC Absolute 0.00 <0.10 K/mcL LAB HEMETOLOGY METHOD 10/27/2024 12:46 PM [facility] Neutrophils Relative 50.3 % LAB HEMETOLOGY METHOD 10/27/2024 12:46 PM [facility] Lymphocytes Relative 36.0 % LAB HEMETOLOGY METHOD 10/27/2024 12:46 PM [facility] Monocytes Relative 12.1 % LAB HEMETOLOGY METHOD 10/27/2024 12:46 PM [facility] Eosinophils Relative 0.8 % LAB HEMETOLOGY METHOD 10/27/2024 12:46 PM [facility] Basophils Relative 0.5 % LAB HEMETOLOGY METHOD 10/27/2024 12:46 PM [facility] Immature Granulocytes Relative 0.3 % LAB HEMETOLOGY METHOD 10/27/2024 12:46 PM [facility] Neutrophils Absolute 1.83 1.50 - 7.00 K/mcL LAB HEMETOLOGY METHOD 10/27/2024 12:46 PM [facility] Lymphocytes Absolute 1.31 1.00 - 5.00 K/mcL LAB HEMETOLOGY METHOD 10/27/2024 12:46 PM [facility] Monocytes Absolute 0.44 0.20 - 1.00 K/mcL LAB HEMETOLOGY METHOD 10/27/2024 12:46 PM EDT [facility] Eosinophils Absolute 0.03 0.00 - 0.50 K/mcL LAB HEMETOLOGY METHOD 10/27/2024 12:46 PM EDT [facility] Basophils Absolute 0.02 0.00 - 0.20 K/mcL LAB HEMETOLOGY METHOD 10/27/2024 12:46 PM EDT [facility] Immature Granulocytes Absolute 0.01 0.00 - 0.03 K/mcL LAB HEMETOLOGY METHOD 10/27/2024 12:46 PM EDT [facility] Blood Venous blood specimen / Unknown Venipuncture / Unknown 10/27/2024 9:34 AM EDT 10/27/2024 9:34 AM EDT Akbar [facility] LAB BLOOD ORDERABLES Final Resu lt [facility] [address] [place] [address], * Vitamin D 1,25 dihydroxy (10/27/2024 9:34 AM EDT) Vitamin D, 1, 25-Dihydroxy 56 20 - 79 pg/mL 10/31/2024 7:44 PM EDT [facility] Comment: Vitamin D 1, 25 dihydroxy levels should be primarily used to assess Vitamin D status in patients with renal disease and hypercalcemia. Vitamin D 1,25-dihydroxy levels are generally less than 5 pg/mL in end stage renal disease patients. The preferred initial test for assessing Vitamin D status in the general population is Vitamin D 25-hydroxy (VITD). Test performed at [facility], [facility] [address] [place] [address] Rachana Candelaria MD, PhD - Content Curator Blood Venous blood specimen / Unknown Venipuncture / Unknown 10/27/2024 9:34 AM EDT 10/27/2024 9:34 AM EDT us Mandie Laguerre PA LAB BLOOD ORDERABLES Final Resul t [place] [place] [address] * Sedimentation rate (10/27/2024 9:34 AM EDT) Sed Rate 8 0 - 20 mm/hr LAB HEMETOLOGY METHOD 10/27/2024 1:01 PM EDT [facility] Blood Venous blood specimen / Unknown Venipuncture / Unknown 10/27/2024 9:34 AM EDT 10/27/2024 9:34 AM EDT us Mandie Laguerre PA LAB BLOOD ORDERABLES Final Resul t Performing Organization Address [facility] de Phone Number [facility] [address] [place] [address], [place] [phone] * (ABNORMAL) Folate (10/27/2024 9:34 AM EDT) Folate >20.0(H) 2.8 - 17.0 ng/ml LAB CHEMISTRY METHOD 10/27/2024 2:48 PM EDT [facility] Blood Venous blood specimen / Unknown Venipuncture / Unknown 10/27/2024 9:34 AM EDT 10/27/2024 9:34 AM EDT us Mandie Laguerre PA LAB BLOOD ORDERABLES Final Resul t Performing Organization Address City/[facility]/ZIP Co de Phone Number [facility] [address] [place] [address], [place] [phone] * Vitamin B12 (10/27/2024 9:34 AM EDT) Vitamin B-12 548 250 - 900 pcg/mL LAB CHEMISTRY METHOD 10/27/2024 2:48 PM EDT [facility] Blood Venous blood specimen / Unknown Venipuncture / Unknown 10/27/2024 9:34 AM EDT 10/27/2024 9:34 AM EDT us Mandie [facility] LAB BLOOD ORDERABLES Final Resul t [facility] [address] [place] [address], [place] [phone] * Comprehensive metabolic panel (10/27/2024 9:34 AM EDT) Sodium 141 133 - 145 mmol/L LAB CHEMISTRY METHOD 10/27/2024 2:48 PM [facility] Potassium 3.9 3.5 - 5.5 mmol/L LAB CHEMISTRY METHOD 10/27/2024 2:48 PM [facility] Chloride 107 96 - 110 mmol/L LAB CHEMISTRY METHOD 10/27/2024 2:48 PM [facility] CO2 28 21 - 32 mmol/L LAB CHEMISTRY METHOD 10/27/2024 2:48 PM [facility] Anion Gap 6 3 - 11 LAB CHEMISTRY METHOD 10/27/2024 2:48 PM [facility] Glucose 92 70 - 100 mg/dL LAB CHEMISTRY METHOD 10/27/2024 2:48 PM [facility] BUN 8 5 - 25 mg/dL LAB CHEMISTRY METHOD 10/27/2024 2:48 PM [facility] Creatinine 0.70 0.50 - 1.10 mg/dL LAB CHEMISTRY METHOD 10/27/2024 2:48 PM [facility] eGFR 106 >=60 mL/min/1. 73m2 LAB CHEMISTRY METHOD 10/27/2024 2:48 PM T [facility] Comment:Calculation based on the Chronic Kidney Disease Epidemiology Collaboration (CKD-EPI) equation refit without adjustment for race. BUN/Creatinine Ratio 11.4 LAB CHEMISTRY METHOD 10/27/2024 2:48 PM EDT [facility] Calcium 9.3 8.5 - 10.5 mg/dL LAB CHEMISTRY METHOD 10/27/2024 2:48 PM EDT [facility] AST (SGOT) 12 10 - 42 unit/L LAB CHEMISTRY METHOD 10/27/2024 2:48 PM EDT [facility] ALT (SGPT) 18 10 - 60 unit/L LAB CHEMISTRY METHOD 10/27/2024 2:48 PM EDT [facility] Alkaline Phosphatase 59 42 - 121 unit/L LAB CHEMISTRY METHOD 10/27/2024 2:48 PM EDT [facility] Total Protein 7.0 6.0 - 8.0 g/dL LAB CHEMISTRY METHOD 10/27/2024 2:48 PM EDT [facility] Albumin 3.5 3.2 - 5.0 g/dL LAB CHEMISTRY METHOD 10/27/2024 2:48 PM EDT [facility] Total Bilirubin 0.5 0.0 - 1.4 mg/dL LAB CHEMISTRY METHOD 10/27/2024 2:48 PM EDT [facility] Blood Venous blood specimen / Unknown Venipuncture / Unknown 10/27/2024 9:34 AM EDT 10/27/2024 9:34 AM EDT us Akbar [facility] LAB BLOOD ORDERABLES Final Resu lt [facility] [address] [place] [address], [place] [phone] * MG Mammo Digital Diagnostic w Elías bilat (08/25/2024 1:42 PM EST) Anatomical Region Laterality Modality Breast Bilateral Mammography 08/25/2024 2:23 PM EST Impressions 08/25/2024 3:20 PM EST 1. The 6:00 lesion which has previously been followed is morphologically stable and demonstrates two-year stability. 2. The 5:00 lesion most likely corresponds to mammographic finding and is probably benign. Recommend 3 month sonographic follow-up 3. Heterogeneously dense Findings and recommendations were conveyed to the patient. BI-RADS CATEGORY: 3 - PROBABLY BENIGN RECOMMENDATION: Short Interval Follow-up is recommended for the Right Breast. Short Interval Follow-up is recommended for the Right Breast. Targeted right breast ultrasound at 5:00 in 3 months Mammo Location: [facility], [address] [place] [address], [id number], . -------- FINAL REPORT -------- Dictated By: Maral Silver Dictated Date: 08/25/2024 14:23 ET Assigned Physician: Maral Silver Reviewed and Electronically Signed By: Maral Silver Signed Date: 08/25/2024 15:20 ET Workstation ID: [id number] Transcribed By: Self Edit Transcribed Date: 08/25/2024 14:52 ET Narrative 08/25/2024 3:20 PM EST BILATERAL DIGITAL 3D DIAGNOSTIC MAMMOGRAPHY HISTORY: Follow-up for inferior breast focal asymmetry. Additionally, sonographic follow-up for right breast 6:00 probably benign lesion COMPARISON: Multiple mammograms dating back to 04/07/2014, ultrasound from 03/02/2024 and 02/06/2023 Technique: Bilateral CC and MLO full field views, bilateral exaggerated cc views, left breast CC and MLO spot compression 3-D FINDINGS: BREAST DENSITY: C - The breasts are heterogeneously dense which may obscure small masses. Right: The inferior breast focal asymmetry has slightly increased from the prior examination. Sonographic evaluation demonstrates a probably benign heterogeneous predominantly cystic lesion at 5:00. Left: No suspicious masses, microcalcifications or areas of architectural distortion. Stable typically benign asymmetries. EXAM: RIGHT BREAST TARGETED ULTRASOUND EVALUATION TECHNIQUE: Ultrasonographic examination is performed using a linear array transducer. Targeted right breast ultrasound at 5:00 to 6:00, retroareolar and 12:00 to evaluate mammographic finding. Real-time sonographic scanning was also performed by the radiologist FINDINGS: At 6:00, there is an anechoic thin-walled cystic lesion with thin septation measuring 0.6 x 0.5 x 0.4 cm which is morphologically grossly stable and probably benign. This overall demonstrates two-year stability. At 5:00, there is a 0.9 x 0.3 x 0.7 cm solid and cystic curvilinear lesion without vascularity which most likely corresponds to findings seen mammographically and is probably benign. Procedure Note Maral Silver MD - 08/25/2024 BILATERAL DIGITAL 3D DIAGNOSTIC MAMMOGRAPHY HISTORY: Follow-up for inferior breast focal asymmetry. Additionally,sonographic follow-up for right breast 6:00 probably benign lesion COMPARISON: Multiple mammograms dating back to 04/07/2014, ultrasound from03/02/2024 and 02/06/2023 Technique: Bilateral CC and MLO full field views, bilateral exaggerated ccviews, left breast CC and MLO spot compression 3-D FINDINGS: BREAST DENSITY: C - The breasts are heterogeneously dense which mayobscure small masses. Right: The inferior breast focal asymmetry has slightly increased from the priorexamination. Sonographic evaluation demonstrates a probably benignheterogeneous predominantly cystic lesion at 5:00. Left: No suspicious masses, microcalcifications or areas of architecturaldistortion. Stable typically benign asymmetries. EXAM: RIGHT BREAST TARGETED ULTRASOUND EVALUATION TECHNIQUE: Ultrasonographic examination is performed using a linear arraytransducer. Targeted right breast ultrasound at 5:00 to 6:00, retroareolarand 12:00 to evaluate mammographic finding. Real-time sonographic scanningwas also performed by the radiologist FINDINGS: At 6:00, there is an anechoic thin-walled cystic lesion with thinseptation measuring 0.6 x 0.5 x 0.4 cm which is morphologically grosslystable and probably benign. This overall demonstrates two-yearstability. At 5:00, there is a 0.9 x 0.3 x 0.7 cm solid and cystic curvilinear lesionwithout vascularity which most likely corresponds to findings seenmammographically and is probably benign. IMPRESSION: 1. The 6:00 lesion which has previously been followed is morphologicallystable and demonstrates two-year stability. 2. The 5:00 lesion most likely corresponds to mammographic finding and isprobably benign. Recommend 3 month sonographic follow-up 3. Heterogeneously dense Findings and recommendations were conveyed to the patient. BI-RADS CATEGORY: 3 - PROBABLY BENIGN RECOMMENDATION: Short Interval Follow-up is recommended for the Right Breast. ShortInterval Follow-up is recommended for the Right Breast. Targeted rightbreast ultrasound at 5:00 in 3 months Mammo Location: [facility], [address] [place] [address], [id number], . -------- FINAL REPORT -------- Dictated By: Maral Silver Dictated Date: 08/25/2024 14:23 ET Assigned Physician: Maral Silver Reviewed and Electronically Signed By: Maral Silver Signed Date: 08/25/2024 15:20 ET Workstation ID: [id number] Transcribed By: Self Edit Transcribed Date: 08/25/2024 14:52 ET Yeimy Hammond MD IMG BI PROCEDURES Final Result * HIV Screening (02/15/2024) HIV Screening abstracted Result [facility] Historical Provider HEALTH MAINTENANCE Final Result * Hepatitis C Screening (02/15/2024) Hepatitis C Screening abstracted Result [facility] Provider HEALTH MAINTENANCE Final Result * Depression Screening (01/26/2024) Depression Screening abstracted Result [facility] Provider HEALTH MAINTENANCE Final Result from Last 3 Months or Most Recently Relevant to Health Maintenance Insurance [facility] Care Teams Equipment Operating Engineer Relationship Specialty Start Date End Date Yeimy Hammond MD [address] [place] [id number] PCP - General Internal Medicine 01/15/22
== END 2025-01-24 16:06 | disposition home or self-care (01) ==
LOC: HO.CT 16:05
PROVIDERS: PCP Internal Medicine; Visit Provider Registered Nurse
DX: G31.84 Mild cognitive impairment of uncertain or unknown etiology (principal)
CPT/HCPCS: 70450

== ENCOUNTER → 2025-01-24 16:16 | Outpatient (BNV) | payer OTHER, SELFPAY | PROVIDERS: PCP Internal Medicine; Visit Provider Radiology Diagnostic Radiology | DX: G31.84 Mild cognitive impairment of uncertain or unknown etiology (principal) | CPT/HCPCS: 70450 ==

== ENCOUNTER 2025-01-31 10:57 | Outpatient (AMB) | payer OTHER, SELFPAY ==
--- NOTE | 2025-01-31 11:18 | MHC.OFFVIS ---
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 And Washer Mechanic Required: Yes Dryer And Washer Mechanic Services: Dryer And Washer Mechanic Present Dryer And Washer Mechanic Name: Mainor # [id number] Allergies ondansetron (From Zofran) Allergy (Intermediate, Verified 01/31/25 11:33) Rash Medication List - Last Reconciled 01/31/25 by Patricia Moser, MILANA cyclobenzaprine 10 mg PO BEDTIME diclofenac sodium 75 mg PO BID duloxetine 40 mg PO DAILY ergocalciferol (vitamin D2) 1,250 mcg PO QWEEK famotidine 20 mg PO BEDTIME PRN fluticasone propionate 50 mcg/actuation 1 inh inhalation DAILY meclizine 12.5 mg PO BID PRN nortriptyline 10 mg PO BEDTIME pantoprazole 40 mg PO DAILY sumatriptan succinate 25 mg PO Q2-4H PRN HPI Comments Details: She was getting about 3 headaches/week. Pain was usually frontal, sometimes behind left eye, throbbing-type pain with photophobia, sonophobia, and nausea. Using sumatriptan as needed which helps. Memory was still not so good. Has trouble focusing and forgetful. Continues with FM pains all over body and feels tired during the day. Sleep was still up and down, using CPAP, but sometimes gets anxiety and takes it off. Has some anxiety and depression, concerned about current events happening in world, working with therapist and psychiatrist. Previously, headaches were down to once every other week with nortriptyline. FM pains all over, in arms and legs, and tired. More forgetful. 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 She sometimes forgets what she went to the store for. Sleep was not so good, uses CPAP and wakes few times during night. Mood was up and down, some anxiety and depression. Works with therapist. Labs with PCP at [facility] were ok, including CBC, BMP, TSH, vitamin B12 and folate, and vitamin D. Has had neck pain and bilateral shoulder pain. Headaches 3x/ wk lasting several hours for which she uses Ibuprofen. She underwent an anterior cervical discectomy and fusion C5-6-[address] Marzena Valencia in October of 2021. In June 2022, she had right shoulder rotator cuff repair. She also had left CTS release and ulnar nerve transposition in January 2023 although her last nerve conduction study from July was normal. She complains of neck pain and occipital headaches and her arms feel weak and recently she has had some days where her legs felt weak. Some days she feels fine. She has some pain also in her wrists bilaterally and occasionally tingling in the hands. [facility] Medical History (Updated 01/31/25 @ 13:02 by Patricia Moser CNP) RICHI on CPAP Cervical disc disease GERD (gastroesophageal reflux disease) Surgical History S/P rotator cuff repair History of cervical discectomy Social History (Updated 01/30/25 @ 13:45 by Avelina Chow MA) Patient Tobacco Use Status: Never used Tobacco Review of Systems Const Denies chills, Denies daytime sleepiness, Reports difficulty sleeping, Reports fatigue, Denies fever(s), Denies frequent falls, Reports headache(s), Denies increased appetite, Denies poor appetite, Denies snoring, Denies weakness, Denies weight gain and Denies weight loss Eyes Denies loss of vision ENT Reports no additional complaints, Reports Normal hearing present, Denies vertigo, Denies dizziness, Reports headache(s) and Reports neck pain Card Denies chest pain at rest, Denies chest pain with activity, Denies syncope, Denies leg edema, Denies palpitations, Denies dyspnea and Denies dyspnea on exertion Resp Denies cough, Denies dyspnea, Denies dyspnea on exertion and Denies snoring GI Denies abdominal pain, Denies constipation, Denies heartburn, Denies diarrhea, Denies nausea and Denies vomiting Denies urinary frequency, Denies urinary incontinence and Denies urinary urgency Musc Denies abnormal gait, Reports back pain, Reports myalgias, Reports arthralgias, Reports neck pain, Denies numbness, Reports stiffness and Denies tingling Neuro Reports Normal hearing present, Denies Abnormal speech present, Denies abnormal gait, Denies vertigo, Denies dizziness, Denies syncope, Denies frequent falls, Reports headache(s), Denies lack of coordination, Denies loss of vision, Reports memory loss, Denies numbness, Denies Other visual disturbances, Denies restless legs, Denies seizure-like activity, Denies tingling, Denies paresthesias, Denies tremor(s) and Denies weakness Psych Reports anxiety, Reports depression, Reports memory loss, Denies visual hallucinations and Denies hallucinations Endo Reports fatigue and Denies palpitations Physical Exam Const General: no acute distress, alert and awake Orientation/consciousness: oriented to person, oriented to place and oriented to time (Partially oriented to time. She knows month and year, does not know date.) Eyes Pupils: Equal, round and reactive pupils present Resp Effort & Inspection: normal respiratory effort Auscultation: clear to auscultation bilaterally Cardio Rate: regular rate Rhythm: regular rhythm Heart sounds: S1 normal heart sound present and S2 normal heart sound present Neuro Other: MMSE Level of Consciousness: Alert. Orientation: Knows correct year, month, day and season. Does not know date. Knows correct city, county and state. Knows correct location and floor. Registration: Able to register 3 objects. Attention: Unable to do serial 7's. Recall: Able to recall 3 out of 3 objects. Language: Normal spontaneous speech, fluency, repetition, naming, comprehension, reading, and writing. Total Score: 24/30. Extrapyramidal System: No tremor or rigidity. Normal facial expressions. No bradykinesia. No bradyphrenia. Normal arm swing and posture. No propulsion or retropulsion. General: oriented to person, oriented to place, oriented to time (Partially oriented to time. She knows month and year, does not know date.), moves all extremities, no focal motor deficits, normal sensation to monofilament and deep tendon reflexes 2+ bilaterally Cranial nerves: Yes CN's II-XII intact bilaterally, Yes Facial sensation intact/muscles of mastication intact, Yes Equal, round and reactive pupils present, Yes Bilaterally intact EOM present, Yes Normal facial strength present, Yes Midline tongue present, Yes Symmetric palate elevation present, Yes Normal hearing present and Yes Ability to bilaterally elevate shoulders present Speech: No Abnormal speech present Gait exam (Neuro): Normal gait present Motor exam (neuro): 5/5 motor strength present throughout, Pronator motor function not present, no tremor noted, Motor fasciculations not present and Normal motor muscle tone present throughout Sensory Exam: other (Normal light touch, temperature, pinprick, vibration, and joint-position) Plantar Reflex Responses: downgoing: bilateral Coordination: [id number] test normal, zein-fu-ovud test normal, Romberg test negative, rapid alternating movements of the distal upper extremity normal and rapid alternating movements of the distal lower extremity normal Extrem General: No edema Psych Mental Status: other (as above) Affect: normal affect Attitude: cooperative Results Reviewed Results Reviewed: EEG 11/2024: WNL CT brain 01/2025: IMPRESSION: No acute intracranial abnormality. Assessment & Plan Assessment & Plan (1) Tension headache: Code(s): G44.209 - Tension-type headache, unspecified, not intractable Category: Medical Plan: Nortriptyline dose increased. (2) Migraine: Code(s): G43.909 - Migraine, unspecified, not intractable, without status migrainosus Category: Medical Qualifiers: Migraine type: unspecified Status migrainosus presence: without status migrainosus Intractability: not intractable Qualified Code(s): G43.909 - Migraine, unspecified, not intractable, without status migrainosus Plan: Continue sumatriptan 25mg as needed for migraines. (3) MCI (mild cognitive impairment): Code(s): G31.84 - Mild cognitive impairment of uncertain or unknown etiology Category: Medical Plan: EEG and CT scan results reviewed. Stay physically, socially, and intellectually active. Plan Meds tried: Diclofenac, cyclobenzaprine, amitriptyline (drowsiness) Medications: New nortriptyline 10 mg orally 2 capsules at bedtime; 60 caps 2RF 30 days Coding Level of Care Code Est Pt Level 4 (29999) Diagnoses Tension headache G44.209 Migraine without status migrainosus, not intractable, unspecified migraine type G43.909 Migraine type: unspecified Status migrainosus presence: without status migrainosus Intractability: not intractable MCI (mild cognitive impairment) G31.84
--- OUTSIDE RECORDS SUMMARY | 2025-01-31 12:11 | XMS_ITS | Clinical Summary ---
Author Organization [facility] Address [address] [place] [address] Care Team Providers [facility] Dem[facility]ation Agent Name Role Phone Unavailable Primary Care Provider Unavailabl e Source Comments PLEASE NOTE, if this patient is a minor, it may be UNLAWFUL to discuss sensitive information that is contained in these records (such as FAMILY PLANNING, MENTAL HEALTH or SUBSTANCE ABUSE) with the minor patient's parent or other person without the patient's specific authorization.[facility] Allergies Active Allergy Reactions Criticality Noted Date Comments Ondansetron Hcl 08/15/2022 Medications No known medications Active Problems No known active problems Encounters Date Type Department Care Team Description 11/03/2024 1:40 PM EDT Office Visit [facility] [address] [place] [address] Hans Meehan RHD from Last 3 Months Social History Tobacco Use Types Packs/Day Years Used Date Smoking Tobacco: Never Smokeless Tobacco: Never Tobacco Cessation:Counseling Given: Not Answered Social Connections Answer Date Recorded Connectedness 0 04/18/2024 Financial Resource Strain Answer Date R ecorded Financial Resource Strain 0 2022 Stress Answer Date Recorded Stress 0 08/15/2022 Physical Activity Answer Date Recorded Physical Activity 0 08/15/2022 Food Insecurity Answer Date Recorded Food 0 04/28/2024 Transportation Needs Answer Date Record ed Transportation 0 08/15/2022 Housing Stability Answer Date Recorded Housing 0 08/15/2022 Safety and Environment Answer Date Teja rded Safety 0 08/15/2022 Utilities Answer Date Recorded Utilities 0 08/15/2022 Employment Answer Date Recorded Stress 0 04/18/2024 Comments Unknown Sex and Gender Information Value Date Recorded Sex Assigned at Not on file Legal Sex Female 1:04 PM PDT Gender Identity Not on file Sexual Orientation Not on file Last Filed Vital Signs Vital Sign Reading Time Taken Comments Blood Pressure 105/64 11/03/2024 2:01 PM EDT Pulse 86 11/03/2024 2:01 PM EDT Temperature - - Respiratory Rate - - Oxygen Saturation - - Inhaled Oxygen Concentration - - Weight - - Height - - Body Mass Index - - Plan of Treatment Upcoming Encounters Date Type Department Care Team (Late st Contact Info) Description 01/31/2025 2:00 PM EDT Office Visit [facility] [address] [place] [address] Boubacar Min, ITZ [address] [place] [address] 03/08/2025 1:40 PM EDT Office Visit [facility] [address] [place] [address] Hans Meehan RHD [address] [place] [address] Health Maintenance Due Date Last Done Comments Anxiety Screening 1975 HPV Screening 1975 Hepatitis C Screening 1975 Pap + HPV 1975 Relationship Safety Screening/Counseling 1990 Cervical Cancer Screening [address] Colonography 2020 Colonoscopy 2020 Colorectal Cancer Screening 2020 FIT/gFOBT 2020 Fecal DNA 2020 Flexible Sigmoidoscopy 2020 [id number] ( season) 2024 021 Alcohol and Drug Screen 08/03/2024 Depression Annual Screen 08/03/2024 Dental BW 02/16/2025 02/15/2024, 08/03, 08/15/2022 Imm-Influenza (#1) 2025 08/27/2022, 1 , 07/19/2019, Additional history exists Dental Examination 08/20/2025 08/18/2024, 08/13/2023 Dental Perio Charting 08/20/2025 08/18/2024 , 02/15/2024, 12/10/2022 Dental Prophy 08/20/2025 08/18/2024, 01/31, 08/13/2023, Additional history exists Hypertension Screening (#1) 11/03/2025 Tobacco Screening 11/03/2025 11/03/2024 Breast Cancer Screening (Mammogram) 08/25/2026 08/25/2024, 08/25/2023, 06/03/2019 Dental FMX/Pano 08/17/2027 08/15/2022 Diabetes Screening 10/28/2027 10/27/2024, 0 08/05/2024, 08/05/2024, Additional history exists Lipid Screening 10/27/2029 10/27/2024, 01/02, 11/19/2022, Additional history exists Imm-DTaP/Tdap/Td (3 - Td or Tdap) 10/27/2034 025, 09/01/2014 Imm-Hepatitis B Completed 03/17/2012, 11/01, 09/12/2011, Additional history exists HIV Screening Completed 02/15/2024, 09/07/2023 Cervical Ablation/Cold-Knife Conization Discontinued Cervical Cryotherapy Discontinued Colposcopy Discontinued Endometrial Biopsy Discontinued Excision/Leep Discontinued HPV Genotyping Discontinued Vaginal Pap Discontinued Vulvoscopy Discontinued Procedures Procedure Name Priority Date/Time Associated Diagnosis Comments LL PRDONTAL SCALING&ROOT PLANING 4/MORE TEETH-QUAD Routine 11/03/2024 1:40 PM EDT Periodontal disease UL PRDONTAL SCALING&ROOT PLANING 4/MORE TEETH-QUAD Routine 11/03/2024 1:40 PM EDT Periodontal disease COMP PERIODONTAL EVALUATION - NEW/EST PATIENT Routine 08/18/2024 10:20 AM EST Encounter for dental examination PROPHYLAXIS - ADULT Routine 08/18/2024 1 0:20 AM EST Encounter for dental examination PERIODIC ORAL EVALUATION ESTABLISHED PATIENT Routine 08/18/2024 10:20 AM EST Encounter for dental examination BITEWINGS - FOUR RADIOGRAPHIC IMAGES Routine 02/15/2024 10:20 AM EDT Encounter for dental examination INTRAORAL - COMP SERIES OF RADIOGRAPHIC IMAGES Routine 08/15/2022 2:20 PM EST Visit for dental examination from Last 3 Months or Most Recently Relevant to Health Maintenance Insurance [place]
--- OUTSIDE RECORDS SUMMARY | 2025-01-31 12:11 | XMS_ITS | Clinical Summary ---
Author Organization [facility] Address [address] [place] [address] Phone Care Team Providers Care Maxillofacial Prosthetics Dentist Name Role Phone Yeimy Hammond MD Primary [...] This exam was performed in conjunction with [facility] language services motion and time study teacher Maddy #[id number]. Ms. Luis Alberto Duran is well-known to [...] Team Description 01/16/2025 2:30 PM EDT Evaluation [facility] [address] [phone] Alex Joy PT Chronic pain of right knee 12/19/2024 11:30 AM EDT Office Visit Adult Medicine [address] [phone] Yeimy Larsen MD Chronic pain of right knee (Primary Dx); Migraine without aura and without status migrainosus, not intractable 11/29/2024 11:30 AM EDT Treatment [facility] [address] [phone] Adelina Choudhary, PT Biceps tendinitis of right upper extremity (Primary Dx); Adhesive capsulitis of left shoulder 11/23/2024 1:26 PM EDT - 11/23/2024 11:59 PM EDT Hospital Encounter Radiology Department - [address] [phone] Other abnormal and inconclusive findings on diagnostic imaging of breast Discharge Disposition: Home or Self Care 11/22/2024 11:30 AM EDT Treatment [facility] [address] [phone] Christopher Jhaveri, EXECUTOR OF ESTATE Biceps tendinitis of right upper extremity (Primary Dx) 11/15/2024 11:00 AM EDT Treatment [facility] [address] [phone] Christopher Jhaveri, EXECUTOR OF ESTATE Biceps tendinitis of right upper extremity (Primary Dx) 11/09/2024 12:30 PM EDT Treatment [facility] [address] [phone] Christopher Jhaveri, EXECUTOR OF ESTATE Biceps tendinitis of right upper extremity (Primary Dx); Adhesive capsulitis of left shoulder 11/09/2024 11:15 AM EDT Office Visit Orthopedic Surgery [facility] 160 [address] [facility] [address] [place] [phone] Amado Leblanc MD Left shoulder pain (Primary Dx); Biceps tendinitis of right upper extremity from Last 3 Months Immunizations Name Administration Dates Next Due Diptheria & Tetanus, 6wks to less than 7yo 01/10/2009 Hepatitis A-Hepatitis B Adul t (Twinrix) 18yo and older 02/07/2009 Hepatitis B (Hxfdpyl-X-Ugcaf , Recombivax HB-Adult) 19yo and older 03/17/2012,11/11/2011,09/12/2011 [...] 07/2014 TUBAL LIGATION OTHER SURGICAL HISTORY 11/2015 [place] TOTAL ABDOMINAL HYSTERECT W/WO RMVL TUBE OVARY; [...] your loved ones. For example, child care lead teacher or elderly care for an older adult? [...] Info) Description 01/31/2025 12:30 PM EDT Treatment [address] [phone] Alex Joy, PT 02/07/2025 11:30 AM EDT Treatment [address] [phone] Christopher Jhaveri, EXECUTOR OF ESTATE 02/09/2025 11:30 AM EDT Treatment [address] [address] Christopher Jhaveri, EXECUTOR OF ESTATE 02/13/2025 11:30 AM EDT Treatment [address] [phone] Christopher Jhaveri, EXECUTOR OF ESTATE 02/15/2025 11:30 AM EDT Treatment [address] [phone] Christopher Jhaveri, EXECUTOR OF ESTATE 02/20/2025 11:30 AM EDT Treatment [address] [phone] Christopher Jhaveri, EXECUTOR OF ESTATE 02/22/2025 11:30 AM EDT Treatment [address] [phone] Alex Joy, PT 02/27/2025 11:00 AM EDT Treatment [address] [phone] Alex Joy, PT 05/25/2025 1:45 PM EDT Appointment Radiology Department [address] [phone] 11/02/2025 3:00 PM EDT Office Visit Adult Medicine [address] [phone] Yeimy Hammond MD [address] [place], [place] Health Maintenance Due Date Last Done Comments [...] Patient-Stated? Author Pt goal General On track( 1:19 PM EST) Yes Nichelle Chanel, OT Note: Improved L shldr motion and decreased pain STG (6 visits) General On track( 1:19 PM EST) No Nichelle Chanel, OT [...] window) LTG (12 visits) General On track( 1:19 PM EST) No Nichelle Chanel, OT [...] 11/09/2024 11:36 AM EDT Left shoulder pain LIPID PANEL WITH REFLEX TO DIRECT LDL [...] Signed Date: 11/23/2024 13:53 ET Workstation ID: [id number] Transcribed By: Self Edit Transcribed Date: 11/23/2024 [...] Signed Date: 11/23/2024 13:53 ET Workstation ID: [id number] Transcribed By: Self Edit Transcribed Date: 11/23/2024 [...] MD IMG XR PROCEDURES Final Result * (ABNORMAL) Lipid panel with reflex to direct LDL (10/27/2024 9:34 AM EDT) Cholesterol 193 0 - 200 mg/dL LAB CHEMISTRY METHOD 10/27/2024 2:48 PM EDT [facility] Triglycerides 212(H) 0 - 150 mg/dL LAB CHEMISTRY METHOD 10/27/2024 2:48 PM EDT [facility] HDL 51 >=40 mg/dL LAB CHEMISTRY METHOD 10/27/2024 2:48 PM EDT [facility] LDL Calculated 100 0 - 100 mg/dL LAB CHEMISTRY METHOD 10/27/2024 2:48 PM EDT [facility] VLDL Cholesterol Omkar 42.4 mg/dL LAB CHEMISTRY METHOD 10/27/2024 2:48 PM EDT [facility] Non HDL Chol. (LDL+VLDL) 142 <145 mg/dL LAB CHEMISTRY METHOD 10/27/2024 2:48 PM EDT [facility] Chol/HDL Ratio 3.8 0.0 - 4.4 LAB CHEMISTRY METHOD 10/27/2024 2:48 PM EDT [facility] Blood Venous blood specimen / Unknown Venipuncture / Unknown 10/27/2024 9:34 AM EDT 10/27/2024 9:34 AM EDT us Akbar [facility] LAB BLOOD ORDERABLES Final Resu lt [facility] [address] [place] [address], [place] [phone] * MG Mammo Digital Diagnostic w Elías [...] at 5:00 in 3 months Mammo Location: [facility], [address] [place] [address], [phone], . -------- FINAL REPORT -------- Dictated By: Maral Silver Dictated Date: 08/25/2024 14:23 ET Assigned Physician: Maral Silver Reviewed and Electronically Signed By: Maral Silver Signed Date: 08/25/2024 15:20 ET Workstation ID: [id number] Transcribed By: Self Edit Transcribed Date: 08/25/2024 [...] at 5:00 in 3 months Mammo Location: [facility], [address] [place] [address], [phone], . -------- FINAL REPORT -------- Dictated By: Maral Silver Dictated Date: 08/25/2024 14:23 ET Assigned Physician: Maral Silver Reviewed and Electronically Signed By: Maral Silver Signed Date: 08/25/2024 15:20 ET Workstation ID: [id number] Transcribed By: Self Edit Transcribed Date: 08/25/2024 14:52 ET Yeimy Hammond MD IMG BI PROCEDURES Final Result * HIV Screening (02/15/2024) HIV Screening abstracted Historical Provider MD HEALTH MAINTENANCE Final Result * Hepatitis C Screening (02/15/2024) Hepatitis C Screening abstracted Result [facility] Provider HEALTH MAINTENANCE Final Result * Depression Screening (01/26/2024) Depression Screening abstracted Historical Provider HEALTH MAINTENANCE Final Result from Last 3 Months or Most Recently Relevant to Health Maintenance Insurance [facility] Care Teams Maxillofacial Prosthetics Dentist Relationship Specialty Start Date End Date Yeimy Hammond MD [address] [place] [id number] PCP - General Internal Medicine 01/15/22
== END 2025-01-31 11:45 | disposition home or self-care (01) ==
LOC: HO.HSM 10:57
PROVIDERS: Family Provider Internal Medicine; PCP Internal Medicine; Visit Provider Registered Nurse
DX: G44.209 Tension-type headache, unspecified, not intractable (principal); G43.909 Migraine, unspecified, not intractable, without status migrainosus; G31.84 Mild cognitive impairment of uncertain or unknown etiology
CPT/HCPCS: 99214

== ENCOUNTER → 2025-01-31 10:57 | Outpatient (BNVA) | payer OTHER, SELFPAY | PROVIDERS: Family Provider Internal Medicine; PCP Internal Medicine; Visit Provider Registered Nurse | DX: G44.209 Tension-type headache, unspecified, not intractable (principal); G43.909 Migraine, unspecified, not intractable, without status migrainosus; G31.84 Mild cognitive impairment of uncertain or unknown etiology | CPT/HCPCS: 99212 ==

== ENCOUNTER 2025-04-04 09:16 | Outpatient (AMB) | payer OTHER, SELFPAY ==
--- NOTE | 2025-04-04 10:00 | A.OFFVIS_ITS ---
Vital Signs 04/04/25 10:00 Height 5 ft 3 in Intake Visit Reasons: 2 mnts for RHODES, [facility] Allergies ondansetron (From Zofran) Allergy (Intermediate, Verified 04/04/25 10:04) Rash Medication List - Last Reconciled 04/04/25 by Patricia Moser CNP cyclobenzaprine 10 mg PO BEDTIME diclofenac sodium 75 mg PO BID duloxetine 40 mg PO DAILY epinephrine (EpiPen) 0.3 mg IM Q10M PRN ergocalciferol (vitamin D2) 1,250 mcg PO QWEEK famotidine 20 mg PO BEDTIME PRN fluticasone propionate 50 mcg/actuation 1 inh inhalation DAILY meclizine 12.5 mg PO BID PRN nortriptyline 10 mg orally 2 capsules at bedtime; 30 days pantoprazole 40 mg PO DAILY sumatriptan succinate 25 mg PO Q2-4H PRN HPI Comments Details: Headaches were a little better with increased dose of nortriptyline, down to about 2x/week from 3x/week, but was waking feeling foggy and having more trouble concentrating. Pain was usually frontal, sometimes behind left eye, throbbing- type pain with photophobia, sonophobia, and nausea. Using sumatriptan as needed which helps. Lack of sleep may trigger headache. Had a FM flare that lasted about about a week, was difficult do anything and had to stay in bed most of the time. More anxiety and depression with increased FM pain. Sleep was not so good, using CPAP, but sometimes gets anxiety and takes it off. Working with therapist and psychiatrist. She was asking for letter with diagnoses. Previously, headaches were down to once every other week with nortriptyline. FM pains all over, in arms and legs, and tired. More forgetful. 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 She sometimes forgets what she went to the store for. Sleep was not so good, uses CPAP and wakes few times during night. Mood was up and down, some anxiety and depression. Works with therapist. Labs with PCP at [facility] were ok, including CBC, BMP, TSH, vitamin B12 and folate, and vitamin D. Has had neck pain and bilateral shoulder pain. Headaches 3x/ wk lasting several hours for which she uses Ibuprofen. She underwent an anterior cervical discectomy and fusion C5-6-[address] Marzena Valencia in October of 2021. In June 2022, she had right shoulder rotator cuff repair. She also had left CTS release and ulnar nerve transposition in January 2023 although her last nerve conduction study from July was normal. She complains of neck pain and occipital headaches and her arms feel weak and recently she has had some days where her legs felt weak. Some days she feels fine. She has some pain also in her wrists bilaterally and occasionally tingling in the hands. [facility] Medical History (Updated 01/31/25 @ 13:02 by Patricia Moser CNP) RICHI on CPAP Cervical disc disease GERD (gastroesophageal reflux disease) Surgical History S/P rotator cuff repair History of cervical discectomy Social History (Updated 01/30/25 @ 13:45 by Avelina Chow MA) Patient Tobacco Use Status: Never used Tobacco Review of Systems Const Denies chills, Denies daytime sleepiness, Reports difficulty sleeping, Reports fatigue, Denies fever(s), Denies frequent falls, Reports headache(s), Denies increased appetite, Denies poor appetite, Denies snoring, Denies weakness, Denies weight gain and Denies weight loss Eyes Denies loss of vision ENT Reports no additional complaints, Denies vertigo, Denies dizziness, Reports headache(s) and Reports neck pain Card Denies chest pain at rest, Denies chest pain with activity, Denies syncope, Denies leg edema, Denies palpitations, Denies dyspnea and Denies dyspnea on exertion Resp Denies cough, Denies dyspnea, Denies dyspnea on exertion and Denies snoring GI Denies abdominal pain, Denies constipation, Denies heartburn, Denies diarrhea, Denies nausea and Denies vomiting Denies urinary frequency, Denies urinary incontinence and Denies urinary urgency Musc Denies abnormal gait, Reports back pain, Reports myalgias, Reports arthralgias, Reports neck pain, Denies numbness, Reports stiffness and Denies tingling Neuro Denies abnormal gait, Denies vertigo, Denies dizziness, Denies syncope, Denies frequent falls, Reports headache(s), Denies lack of coordination, Denies loss of vision, Reports memory loss, Denies numbness, Denies Other visual disturbances, Denies restless legs, Denies seizure-like activity, Denies tingling, Denies paresthesias, Denies tremor(s) and Denies weakness Psych Reports anxiety, Reports depression, Reports memory loss, Denies visual hallucinations and Denies hallucinations Endo Reports fatigue and Denies palpitations Physical Exam Const Other: General Appearance:? normal, in no acute distress. Heart:? S1, S2 normal, no murmurs. Lungs:? clear anteriorly and posteriorly. Musculoskeletal:? normal. Extremities:? no edema. Psych:? alert, as below. Neuro Other: Abnormal Neurological Findings:?MMSE 24/30 Mental Status: alert, as below. Cranial Nerves: Pupils are equal, round, and reactive to light. External ocular muscles are intact. Visual sarmiento are full, no ptosis. Face is symmetrical, no facial weakness or droop. Facial sensations are normal. Tongue protrudes in midline. Palate elevates symmetrically. Shoulder shrugging is normal Motor Examination: Normal muscle tone, bulk and strength. No atrophy or fasciculations. No drift of the extended upper extremities. DTR 2+. Plantars are flexor. Sensory Exam: Normal light touch, temperature, pinprick, vibration, and joint- position sensations. Rhomberg sign is absent. Coordination: No ataxia. No titubation. Gait Exam: Within normal limits. Cerebellar Signs: [id number] is okay. Extrapyramidal System: No tremor, rigidity with normal facial expressions. No bradykinesia. No bradyphrenia. Normal arm swing and posture. No propulsion or retropulsion. Speech: Normal. MMSE Level of Consciousness: Alert. Orientation: Knows correct year, month, day and season. Does not know date. Knows correct city, county and state. Knows correct location and floor. Registration: Able to register 3 objects. Attention: Unable to do serial 7's. Recall: Able to recall 3 out of 3 objects. Language: Normal spontaneous speech, fluency, repetition, naming, comprehension, reading, and writing. Total Score: 24/30. Results Reviewed Results Reviewed: EEG 11/2024: WNL CT brain 01/2025: IMPRESSION: No acute intracranial abnormality. Assessment & Plan Assessment & Plan (1) Migraine: Code(s): G43.909 - Migraine, unspecified, not intractable, without status migrainosus Category: Medical Qualifiers: Migraine type: unspecified Status migrainosus presence: without status migrainosus Intractability: not intractable Qualified Code(s): G43.909 - Migraine, unspecified, not intractable, without status migrainosus Plan: Start topiramate 25mg 1 tablet at bedtime, use/side effects reviewed. Continue sumatriptan 25mg as needed for migraines. Letter with diagnoses given. (2) Tension headache: Code(s): G44.209 - Tension-type headache, unspecified, not intractable Category: Medical Plan: Headaches were a little better with nortriptyline 20mg at bedtime (down to 2x/week from 3x/week), but she felt foggy in the morning and had more trouble concentrating. Medication was stopped. (3) MCI (mild cognitive impairment): Code(s): G31.84 - Mild cognitive impairment of uncertain or unknown etiology Category: Medical Plan: Stay physically, socially, and intellectually active. Depression/anxiety may be contributing to cognitive symptoms, continue working with therapist and psychiatrist. Plan Meds tried: Diclofenac, cyclobenzaprine, amitriptyline (drowsiness), nortriptyline (foggy) Medications: New topiramate 25 mg PO DAILY 30 tabs 2RF 30 days Discontinued nortriptyline Discontinued Reason: Doctor's Order 10 mg orally 2 capsules at bedtime; 30 days 60 caps 2RF Coding Level of Care Code Est Pt Level 4 (49216) Diagnoses Migraine without status migrainosus, not intractable, unspecified migraine type G43.909 Migraine type: unspecified Status migrainosus presence: without status migrainosus Intractability: not intractable Tension headache G44.209 MCI (mild cognitive impairment) G31.84
--- OUTSIDE RECORDS SUMMARY | 2025-04-04 10:09 | XMS_ITS | Clinical Summary ---
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 Name Role Phone Unavailable Primary Care Provider [...] medications Active Problems No known active problems Social History Tobacco Use Types Packs/Day Years [...] Care Team (Late st Contact Info) Description 04/04/2025 1:00 PM EDT Office Visit [facility] [address] [place] [phone] Hans Meehan RHD [address] [place] [address] 04/24/2025 3:00 PM EDT Office Visit [facility] [address] [place] [phone] Boubacar Min DMD [address] [place] [address] 05/09/2025 11:00 AM EDT Office Visit Dental [address] [place] [phone] [place], DDS [address] [place] [phone] 05/10/2025 10:00 AM EDT Office Visit Dental [address] [place] [phone] [place] [address] [place] [phone] 10/04/2025 10:00 AM EST Office Visit [facility] [address] [place] [phone] Cole Griffin [address] [place] [phone] Health Maintenance Due Date Last Done Comments Anxiety Screening 1975 HPV Screening 1975 Hepatitis C Screening 1975 Pap + HPV 1975 Relationship Safety Screening/Counseling 1990 Cervical Cancer Screening [address] Colonography 2020 Colonoscopy 2020 Colorectal Cancer Screening 2020 FIT/gFOBT 2020 Fecal DNA 2020 Flexible Sigmoidoscopy 2020 Alcohol and Drug Screen 08/03/2024 Depression Annual Screen 08/03/2024 Dental BW 02/16/2025 02/15/2024, 08/03, 08/15/2022 [id number] (2 - season) 2025 021 Imm-Influenza (#1) 2025 08/27/2022, 1 , 07/19/2019, Additional history exists Dental Examination 08/20/2025 08/18/2024, 08/13/2023 Dental Perio Charting 08/20/2025 08/18/2024 , 02/15/2024, 12/10/2022 Dental Prophy 08/20/2025 08/18/2024, 01/31, 08/13/2023, Additional history exists Hypertension Screening (#1) 11/03/2025 Tobacco Screening 11/03/2025 11/03/2024 Breast Cancer Screening (Mammogram) 08/25/2026 08/25/2024, 08/25/2023, 06/03/2019 Dental FMX/Pano 08/17/2027 08/15/2022 Diabetes Screening 02/28/2028 02/27/2025, 0 10/27/2024, 08/05/2024, Additional history exists Lipid Screening 10/27/2029 [...] Procedure Name Priority Date/Time Associated Diagnosis Comments COMP PERIODONTAL EVALUATION - NEW/EST PATIENT Routine [...] Most Recently Relevant to Health Maintenance Insurance [place] DENT[place]
--- OUTSIDE RECORDS SUMMARY | 2025-04-04 10:09 | XMS_ITS ---
[facility] Name [facility] Organization Unknown Care Team Organization Name Specialty Phone Email Start Date End Da te [facility] Yeimy Mccabe [facility] 12/08/2022 03/21/2024 [facility] Maria Dolores Bahena Primary [facility] 06/10/20222023
--- OUTSIDE RECORDS SUMMARY | 2025-04-04 10:09 | XMS_ITS | Clinical Summary ---
Author Organization [facility] Address [address] [place] [address] Phone Care Team Providers Care Headhunter Name Role Phone Yeimy Hammond MD Primary Care Prov ider Allergies Active Allergy Reactions Criticality Noted Date Comments Amoxicillin Rash 02/14/2025 Levofloxacin Muscular Issues 02/27/2025 Achilles tendonitis Ondansetron Rash 11/13/2021 IV only Medications busPIRone [...] pregabalin (LYRICA) 25 mg capsule 4 Active cholecalcifero l (VITAMIN D-3) 50 mcg (2,000 unit) tablet Take 1 tablet (2,000 Units total) by mouth 1 (one) time each day. 90 tablet 1 4 Active diclofenac (VOLTAREN) 50 mg EC tabletIndicati ons:Other articular cartilage disorders, left shoulder,Unspe cified disorder of synovium and tendon, left shoulder TAKE 1 TABLET BY MOUTH 2 TIMES DAILY FOR 90 DAYS. 60 tablet 2 5 Active meclizine (ANTIVERT) 12.5 mg tablet Take 1 tablet (12.5 mg total) by mouth 3 (three) times a day if needed for dizziness. 90 tablet 5 Active fluticasone propionate (FLONASE) 50 mcg/actuation nasal spray Administer 2 sprays into each nostril 1 (one) time each day for 10 days. Shake gently. Before first use, prime pump. After use, clean tip and replace cap. 16 g 5 Active pseudoephedrin e (Sudafed 12 Hour) 120 mg 12 hr tablet Take 1 tablet (120 mg total) by mouth every 12 (twelve) hours for 7 days. Do not crush, chew, or split. 14 each 5 Active EPINEPHrine (EPIPEN) 0.3 mg/0.3 mL injection Inject 0.3 mL (0.3 mg total) into the thigh if needed for anaphylaxis. Call 911 after use. 2 each 1 5 Active lidocaine (LIDODERM) 5 % patch REMOVE & DISCARD PATCH WITHIN 12 HOURS OR DIRECTED BY MD.APPLY 1 TO 2 PATCHES TOPICALLY DAILY NEEDED FOR PAIN. REMOVE PATCHES AFTER 12 HRS 90 patch 1 5 Active pantoprazole (PROTONIX) 40 mg EC tablet Take 1 tablet (40 mg total) by mouth 1 (one) time each day. 90 tablet 1 5 Active SUMAtriptan (IMITREX) 25 mg tablet Take 1 tablet (25 mg total) by mouth 1 (one) time if needed for migraine. May repeat dose once in 2 hours if no relief. Do not exceed 2 doses in 24 hours. 9 tablet 5 5 Active famotidine (PEPCID) 20 mg tablet Take 1 tablet (20 mg total) by mouth at bedtime. 90 tablet 1 5 Active famotidine (PEPCID) 20 mg tablet TAKE 1 TABLET BY MOUTH EVERYDAY AT BEDTIME 90 tablet 1 5 03/24/20 25 Discontinu ed(Reorder ) SUMAtriptan (IMITREX) 25 mg tablet Take 1 tablet (25 mg total) by mouth 1 (one) time if needed for migraine. May repeat dose once in 2 hours if no relief. Do not exceed 2 doses in 24 hours. 9 tablet 5 5 03/24/20 25 Discontinu ed(Reorder ) pantoprazole (PROTONIX) 40 mg EC tablet Take 1 tablet (40 mg total) by mouth 1 (one) time each day. 90 tablet 1 5 03/24/20 25 Discontinu ed(Reorder ) sulfamethoxazo le-trimethopri m (BACTRIM DS,SEPTRA DS) 800-160 mg per tablet Take 1 tablet by mouth 2 (two) times a day for 7 days. 14 each 5 03/06/20 Active Problems Problem Noted Date Diagnosed Date [...] This exam was performed in conjunction with [facility] [place] language services switchbox assembler Maddy #[id number]. Ms. Luis Alberto Duran is well-known to [...] Encounters Date Type Department Care Team Description 03/28/2025 1:15 PM EDT Office Visit Adult Medicine [address] [phone] Linda Cobos PA Bilateral swelling of feet and ankles (Primary Dx); Bilateral ankle pain, unspecified chronicity; Hair loss 03/16/2025 12:30 PM EDT Consult Orthopedics - [address] [phone] Blair Reddy PA Chronic pain of right knee (Primary Dx); Osteoarthritis of right knee, unspecified osteoarthritis type; Adhesive capsulitis of left shoulder; Biceps tendinitis of right upper extremity; Chronic left shoulder pain 03/16/2025 11:58 AM EDT - 03/16/2025 11:59 PM EDT Hospital Encounter XRAY - [address] [phone] Chronic pain of right knee Discharge Disposition: Home or Self Care 02/27/2025 10:30 AM EDT Office Visit [address] [phone] Linda Cobos PA Preseptal cellulitis of left upper eyelid (Primary Dx); Acute bilateral ankle pain; Fatigue, unspecified type; Screening for depression 02/24/[address] [phone] Darian Cheng MD 02/23/2025 9:45 AM EDT Office Visit [address] [phone] Darian Cheng MD Fibromyalgia affecting multiple sites (Primary Dx); Preseptal cellulitis of left upper eyelid; Osteoarthritis of right knee, unspecified osteoarthritis type 02/22/2025 11:30 AM EDT Treatment [address] [phone] Alex Joy, PT Chronic pain of right knee (Primary Dx) 02/20/2025 11:30 AM EDT Treatment [address] [phone] Christopher Jhaveri PTA Chronic pain of right knee (Primary Dx) 02/14/2025 12:45 PM EDT Office Visit [address] [phone] Marilyn Sanon PA Earache on right (Primary Dx); Non-recurrent acute serous otitis media of both ears; Vertigo; Allergy to amoxicillin; Food allergy 02/14/[address] [phone] Yeimy Larsen MD 02/13/2025 11:30 AM EDT Treatment [address] [phone] Christopher Jhaveri, BOX WORKER Chronic pain of right knee (Primary Dx) 02/09/2025 11:30 AM EDT Treatment [address] [phone] Christopher Jhaveri, BOX WORKER Chronic pain of right knee (Primary Dx) 02/07/2025 11:30 AM EDT Treatment [address] [phone] Thanh Ness, BOX WORKER Chronic pain of right knee (Primary Dx) 01/31/2025 12:30 PM EDT Treatment [address] [phone] Alex Joy, PT Chronic pain of right knee (Primary Dx) 01/16/2025 2:30 PM EDT Evaluation [address] [phone] Alex Joy, PT Chronic pain of right knee from Last 3 Months Immunizations Name Administration Dates Next Due Diptheria & Tetanus, 6wks to less than 7yo 01/10/2009 Hepatitis A-Hepatitis B Adul t (Twinrix) 18yo and older 02/07/2009 Hepatitis B (Tgwbmov-J-Pwnos , Recombivax HB-Adult) 19yo and older 03/17/2012,11/11/2011,09/12/2011 [...] 07/2014 TUBAL LIGATION OTHER SURGICAL HISTORY 11/2015 ME TOTAL ABDOMINAL HYSTERECT W/WO RMVL TUBE OVARY; [...] care for your loved ones. For example, vocational childcare teacher or elderly care for an older [...] Sign Reading Time Taken Comments Blood Pressure 106/65 03/28/2025 1:05 PM EDT Pulse 87 03/28/2025 1:05 PM EDT Temperature 36.2 C (97.2 F) 03/28/2025 1:05 PM EDT Respiratory Rate 16 03/28/2025 1:05 PM EDT Oxygen Saturation 98% 03/28/2025 1:05 PM EDT Inhaled Oxygen Concentration - - Weight 77.1 kg (170 lb) 03/28/2025 1:05 PM EDT Height 160 cm (5' 3 ) 03/28/2025 1:05 PM EDT Body Mass Index 30.11 03/28/2025 1:05 PM EDT Plan of Treatment Upcoming Encounters Date Type Department Care Team (Late st Contact Info) Description 04/07/2025 1:45 PM EDT Appointment Radiology Department [address] [phone] 04/21/2025 11:00 AM EDT Consult Orthopedic Surgery - [place] [address] [facility] [address] [place] [phone] Amado Leblanc MD 175 [facility] [address] [place] [address] 05/25/2025 9:10 AM EDT Office Visit Gastroenterology [facility] 175 [facility] 175 [facility] [address] [place] [phone] Bell Atkinson PA [address] [place] [phone] 05/25/2025 1:45 PM EDT Appointment Radiology Department [address] [phone] 08/18/2025 11:00 AM EST Office Visit Adult Medicine [address] [phone] Yeimy Hammond MD [address] [place] [address] 11/02/2025 3:00 PM EDT Office Visit Adult Medicine [address] [phone] Yeimy Hammond MD [address] [place] [address] Health Maintenance Due Date Last Done Comments Social Influencers of Health Screening 10/27/2025 10/27/2024 Breast Cancer Screening 08/25/2026 08/25/19, 08/25/2023, 02/06/2023, Additional history exists Cholesterol Screening (Lipid Panel) 10/27/2029 10/27/2024, 01/26/2024, 11/19/2022 Colorectal Cancer Screening: Colonoscopy 10/17/2032 10/17/2022 DTaP,Tdap,and Td Vaccines (4 - Td or Tdap) 10/27/2034 10/27/2024, 09/01/2014, 01/10/2009 Hepatitis A Vaccines Aged Out 02/07/2009 No long er eligible based on patient's age to complete this topic Hepatitis B Vaccines Completed 03/17/2012, 11/11/2011, 09/12/2011, Additional history exists COVID-19 Vaccine Discontinued 03/29/2021 Influenza Vaccine Discontinued 08/27/2022, , 07/19/2019, Additional history exists HIV Screening Completed 02/15/2024, 02/15/2024 Hepatitis C Screening Completed 02/15/2024 Pneumococcal Vaccine: Pediatrics (0 to 5 Years) and At-Risk Patients (6 to 49 Years) Completed 10/27/2024 Depression Screening Completed 03/21/2025, 01/26/20 HIB Vaccines Aged Out No longer eligi [...] General On track( 025 1:19 PM EST) Nichelle Gomez, OT Note: Restored Indep BADL (hair style, dress), pain-tolerable ranges - Met Indep final HEP (contd self-stretch, strength, activity progression) - Met Procedures Procedure Name Priority Date/Time Associated Diagnosis Comments XR KNEE 4+ VIEWS RIGHT Routine 03/16/2025 12:08 PM EDT Chronic pain of right knee CBC WITH AUTO DIFFERENTIAL Routine 02/27/2025 10:41 AM EDT Fatigue, unspecified type THYROID STIMULATING HORMONE WITH REFLEX TO FREE T4 AND FREE T3 Routine 02/27/2025 10:41 AM EDT Fatigue, unspecified type FERRITIN Routine 02/27/2025 10:41 AM EDT Fatigue, unspecified type FOLATE Routine 02/27/2025 10:41 AM EDT Fatigue, unspecified type IRON AND TIBC Routine 02/27/2025 10:41 AM EDT Fatigue, unspecified type VITAMIN B12 Routine 02/27/2025 10:41 AM EDT Fatigue, unspecified type VITAMIN D 25 HYDROXY Routine 02/27/2025 10:41 AM EDT Fatigue, unspecified type COMPREHENSIVE METABOLIC PANEL Routine 02/27/2025 10:41 AM EDT Fatigue, unspecified type CBC AND DIFFERENTIAL Routine 02/27/2025 10:41 AM EDT Fatigue, unspecified type LIPID PANEL WITH REFLEX TO DIRECT LDL Routine 10/27/2024 9:34 AM EDT Fatty liver MG MAMMO DIGITAL DIAGNOSTIC W ELÍAS BILAT Routine 08/25/2024 1:42 PM EST Other abnormal and inconclusive findings on diagnostic imaging of breast HEPATITIS C SCREENING Routine 02/15/2024 HIV SCREENING Routine 02/15/2024 DEPRESSION SCREENING Routine 01/26/2024 COLONOSCOPY Routine 10/17/2022 8:44 AM EDT from Last 3 Months or Most Recently Relevant to Health Maintenance Results * XR Knee 4+ Views Right (03/16/2025 12:08 PM EDT) Anatomical Region Laterality Modality Lower Extremities, Knee Right Radiogra phic Imaging 03/16/2025 12:2 5 PM EDT Impressions 03/16/2025 12:27 PM EDT No acute fracture or dislocation of the right knee. -------- FINAL REPORT -------- Dictated By: Maral Silver Dictated Date: 03/16/2025 12:25 ET Assigned Physician: Maral Silver Reviewed and Electronically Signed By: Maral Silver Signed Date: 03/16/2025 12:27 ET Workstation ID: [id number] Transcribed By: Self Edit Transcribed Date: 03/16/2025 12:25 ET Narrative 03/16/2025 12:27 PM EDT HISTORY: JOINT PAIN, KNEE TECHNIQUE: 4 views of the right knee COMPARISON: None FINDINGS: No acute fracture or dislocation is seen. There is no joint effusion present. The medial and lateral joint spaces appear normal. Soft tissues are unremarkable. Procedure Note Maral Silver MD - 03/16/2025 HISTORY: JOINT PAIN, KNEE TECHNIQUE: 4 views of the right knee COMPARISON: None FINDINGS: No acute fracture or dislocation is seen. There is no joint effusionpresent. The medial and lateral joint spaces appear normal. Soft tissuesare unremarkable. IMPRESSION: No acute fracture or dislocation of the right knee. -------- FINAL REPORT -------- Dictated By: Maral Silver Dictated Date: 03/16/2025 12:25 ET Assigned Physician: Maral Silver Reviewed and Electronically Signed By: Maral Silver Signed Date: 03/16/2025 12:27 ET Workstation ID: [id number] Transcribed By: Self Edit Transcribed Date: 03/16/2025 12:25 ET us Blair ENCARNACION IMG XR PROCEDURES Final Result * Thyroid stimulating hormone with reflex to free t4 and free t3 (02/27/2025 10:41 AM EDT) [facility] TSH 2.46 0.40 - 4.00 mcIU/mL LAB CHEMISTRY METHOD 02/27/2025 7:55 PM EDT [facility] Blood Venous blood specimen / Unknown Venipuncture / Unknown 02/27/2025 10:41 AM EDT 02/27/2025 10:41 AM EDT Linda ENCARNACION LAB BLOOD ORDERABLES Final Resu lt [facility] [address] [place] [address], [place] [phone] * (ABNORMAL) CBC auto differential (02/27/2025 10:41 AM EDT) [facility] WBC 4.2(L) 4.8 - 10.8 K/mcL LAB HEMETOLOGY METHOD 02/27/2025 1:15 PM EDT [facility] RBC 4.20 3.80 - 4.80 M/mcL LAB HEMETOLOGY METHOD 02/27/2025 1:15 PM EDT [facility] Hemoglobin 12.9 11.5 - 16.0 g/dL LAB HEMETOLOGY METHOD 02/27/2025 1:15 PM EDT [facility] Hematocrit 39.2 35.0 - 47.0 % LAB HEMETOLOGY METHOD 02/27/2025 1:15 PM EDT [facility] MCV 93.3 79.0 - 98.0 FL LAB HEMETOLOGY METHOD 02/27/2025 1:15 PM [facility] MCH 30.7 27.0 - 32.0 pcg LAB HEMETOLOGY METHOD 02/27/2025 1:15 PM EDT [facility] MCHC 32.9 32.0 - 37.0 g/dL LAB HEMETOLOGY METHOD 02/27/2025 1:15 PM T [facility] RDW 13.0 11.0 - 15.0 % LAB HEMETOLOGY METHOD 02/27/2025 1:15 PM [facility] Platelets 283 130 - 400 K/mcL LAB HEMETOLOGY METHOD 02/27/2025 1:15 PM EDT [facility] MPV 10.1 7.0 - 11.0 FL LAB HEMETOLOGY METHOD 02/27[facility]2025 [facility] NRBC 0.0 <1.0 % LAB HEMETOLOGY METHOD 02/27/2025 1:15 PM [facility] NRBC Absolute 0.00 <0.10 K/mcL LAB HEMETOLOGY METHOD 02/27/2025 1:15 PM T [facility] Neutrophils Relative 48.6 % LAB HEMETOLOGY METHOD 02/27/2025 1:15 PM [facility] Lymphocytes Relative 39.3 % LAB HEMETOLOGY METHOD 02/27/2025 1:15 PM [facility] Monocytes Relative 10.2 % LAB HEMETOLOGY METHOD 02/27/2025 1:15 PM [facility] Eosinophils Relative 1.2 % LAB HEMETOLOGY METHOD 02/27/2025 1:15 PM EDT [facility] Basophils Relative 0.5 % LAB HEMETOLOGY METHOD 02/27/2025 1:15 PM EDT [facility] Immature Granulocytes Relative 0.2 % LAB HEMETOLOGY METHOD 02/27/2025 1:15 PM EDT [facility] Neutrophils Absolute 2.05 1.50 - 7.00 K/mcL LAB HEMETOLOGY METHOD 02/27/2025 1:15 PM EDT [facility] Lymphocytes Absolute 1.66 1.00 - 5.00 K/mcL LAB HEMETOLOGY METHOD 02/27/2025 1:15 PM EDT [facility] Monocytes Absolute 0.43 0.20 - 1.00 K/mcL LAB HEMETOLOGY METHOD 02/27/2025 1:15 PM EDT [facility] Eosinophils Absolute 0.05 0.00 - 0.50 K/mcL LAB HEMETOLOGY METHOD 02/27/2025 1:15 PM EDT [facility] Basophils Absolute 0.02 0.00 - 0.20 K/mcL LAB HEMETOLOGY METHOD 02/27/2025 1:15 PM EDT [facility] Immature Granulocytes Absolute 0.01 0.00 - 0.03 K/mcL LAB HEMETOLOGY METHOD 02/27/2025 1:15 PM EDT [facility] Blood Venous blood specimen / Unknown Venipuncture / Unknown 02/27/2025 10:41 AM EDT 02/27/2025 10:41 AM EDT us Linda ENCARNACION LAB BLOOD ORDERABLES Final Resu lt [facility] [address] [place] [address], * Iron and TIBC (02/27/2025 10:41 AM EDT) Iron 70 40 - 150 mcg/dL LAB CHEMISTRY METHOD 02/27/2025 3:05 PM EDT [facility] TIBC 314 250 - 450 mcg/dL LAB CHEMISTRY METHOD 02/27/2025 3:05 PM EDT [facility] Iron Saturation 22 15 - 50 % LAB CHEMISTRY METHOD 02/27/2025 3:05 PM EDT [facility] Blood Venous blood specimen / Unknown Venipuncture / Unknown 02/27/2025 10:41 AM EDT 02/27/2025 10:41 AM EDT Linda ENCARNACION LAB BLOOD ORDERABLES Final Resu lt Performing Organization Address [facility]/ZIP Co de Phone Number [facility] [address] [place] [address], [place] [phone] * Vitamin D 25 hydroxy (02/27/2025 10:41 AM EDT) Vit D, 25-Hydroxy 37.6 30.0 - 80.0 ng/mL LAB CHEMISTRY METHOD 02/27/2025 7:54 PM EDT [facility] Blood Venous blood specimen / Unknown Venipuncture / Unknown 02/27/2025 10:41 AM EDT 02/27/2025 10:41 AM EDT Linda ENCARNACION LAB BLOOD ORDERABLES Final Resu lt [facility] [address] [place] [address], [place] [phone] * (ABNORMAL) Folate (02/27/2025 10:41 AM EDT) Pathologist [facility] Folate >20.0(H) 2.8 - 17.0 ng/ml LAB CHEMISTRY METHOD 02/27/2025 3:17 PM EDT [facility] Blood Venous blood specimen / Unknown Venipuncture / Unknown 02/27/2025 10:41 AM EDT 02/27/2025 10:41 AM EDT Linda ENCARNACION LAB BLOOD ORDERABLES Final Resu lt Performing Organization Address [facility]/ZIP Co de Phone Number [facility] [address] [place] [address], [place] [phone] * Ferritin (02/27/2025 10:41 AM EDT) [facility] Ferritin 68 8 - 252 ng/mL LAB CHEMISTRY METHOD 02/27/2025 3:05 PM EDT [facility] Blood Venous blood specimen / Unknown Venipuncture / Unknown 02/27/2025 10:41 AM EDT 02/27/2025 10:41 AM EDT Linda ENCARNACION LAB BLOOD ORDERABLES Final Resu lt Performing Organization Address [facility] Co de Phone Number [facility] [address] [place] [address], [place] [phone] * Vitamin B12 (02/27/2025 10:41 AM EDT) [facility] Vitamin B-12 675 250 - 900 pcg/mL LAB CHEMISTRY METHOD 02/27/2025 3:17 PM EDT [facility] Blood Venous blood specimen / Unknown Venipuncture / Unknown 02/27/2025 10:41 AM EDT 02/27/2025 10:41 AM EDT us Linda ENCARNACION LAB BLOOD ORDERABLES Final Resu lt Performing Organization Address City/[facility]/ZIP Co de Phone Number [facility] [address] [place] [address], [place] [phone] * (ABNORMAL) Comprehensive metabolic panel (02/27/2025 10:41 AM EDT) Sodium 138 133 - 145 mmol/L LAB CHEMISTRY METHOD 02/27/2025 3:11 PM [facility] Potassium 4.0 3.5 - 5.5 mmol/L LAB CHEMISTRY METHOD 02/27/2025 3:11 PM [facility] Chloride 107 96 - 110 mmol/L LAB CHEMISTRY METHOD 02/27/2025 3:11 PM [facility] CO2 27 21 - 32 mmol/L LAB CHEMISTRY METHOD 02/27/2025 3:11 PM [facility] Anion Gap 4 3 - 11 LAB CHEMISTRY METHOD 02/27/2025 3:11 PM [facility] Glucose 88 70 - 100 mg/dL LAB CHEMISTRY METHOD 02/27/2025 3:11 PM [facility] BUN 13 5 - 25 mg/dL LAB CHEMISTRY METHOD 02/27/2025 3:11 PM [facility] Creatinine 0.76 0.50 - 1.10 mg/dL LAB CHEMISTRY METHOD 02/27/2025 3:11 PM [facility] eGFR 96 >=60 mL/min/1. 73m2 LAB CHEMISTRY METHOD 02/27/2025 3:11 PM [facility] Comment:Calculation based on the Chronic Kidney Disease Epidemiology Collaboration (CKD-EPI) equation refit without adjustment for race. BUN/Creatinine Ratio 17.1 LAB CHEMISTRY METHOD 02/27/2025 3:11 PM [facility] Calcium 9.2 8.5 - 10.5 mg/dL LAB CHEMISTRY METHOD 02/27/2025 3:11 PM [facility] AST (SGOT) 9(L) 10 - 42 unit/L LAB CHEMISTRY METHOD 02/27/2025 3:11 PM [facility] ALT (SGPT) 18 10 - 60 unit/L LAB CHEMISTRY METHOD 02/27/2025 3:11 PM [facility] Alkaline Phosphatase 68 42 - 121 unit/L LAB CHEMISTRY METHOD 02/27/2025 3:11 PM EDT [facility] Total Protein 6.9 6.0 - 8.0 g/dL LAB CHEMISTRY METHOD 02/27/2025 3:11 PM EDT [facility] Albumin 3.6 3.2 - 5.0 g/dL LAB CHEMISTRY METHOD 02/27/2025 3:11 PM EDT [facility] Total Bilirubin 0.4 0.0 - 1.4 mg/dL LAB CHEMISTRY METHOD 02/27/2025 3:11 PM EDT [facility] Blood Venous blood specimen / Unknown Venipuncture / Unknown 02/27/2025 10:41 AM EDT 02/27/2025 10:41 AM EDT Linda ENCARNACION LAB BLOOD ORDERABLES Final Resu lt [facility] [address] [place] [address], [place] [phone] * (ABNORMAL) Lipid panel with reflex to direct LDL (10/27/2024 9:34 AM EDT) Cholesterol 193 0 - 200 mg/dL LAB CHEMISTRY METHOD 10/27/2024 2:48 PM T [facility] Triglycerides 212(H) 0 - 150 mg/dL LAB CHEMISTRY METHOD 10/27/2024 2:48 PM EDT [facility] HDL 51 >=40 mg/dL LAB CHEMISTRY METHOD 10/27/2024 2:48 PM EDT [facility] LDL Calculated 100 0 - 100 mg/dL LAB CHEMISTRY METHOD 10/27/2024 2:48 PM T [facility] VLDL Cholesterol Omkar 42.4 mg/dL LAB CHEMISTRY METHOD 10/27/2024 2:48 PM EDT [facility] Non HDL Chol. (LDL+VLDL) 142 <145 mg/dL LAB CHEMISTRY METHOD 10/27/2024 2:48 PM EDT [facility] Chol/HDL Ratio 3.8 0.0 - 4.4 LAB CHEMISTRY METHOD 10/27/2024 2:48 PM EDT [facility] Blood Venous blood specimen / Unknown Venipuncture / Unknown 10/27/2024 9:34 AM EDT 10/27/2024 9:34 AM EDT us Akbar ENCARNACION LAB BLOOD ORDERABLES Final Resu lt [facility] [address] [place] [address], [place] [phone] * MG Mammo Digital Diagnostic w Elías [...] at 5:00 in 3 months Mammo Location: [facility], [address] [place] [address], [id number], . -------- FINAL REPORT -------- Dictated By: Maral Silver Dictated Date: 08/25/2024 14:23 ET Assigned Physician: Maral Silver Reviewed and Electronically Signed By: Maral Silver Signed Date: 08/25/2024 15:20 ET Workstation ID: [id number] Transcribed By: Self Edit Transcribed Date: 08/25/2024 [...] at 5:00 in 3 months Mammo Location: [facility], [address] [place] [address], [id number], . -------- FINAL REPORT -------- Dictated By: Maral Silver Dictated Date: 08/25/2024 14:23 ET Assigned Physician: Maral Silver Reviewed and Electronically Signed By: Maral Silver Signed Date: 08/25/2024 15:20 ET Workstation ID: [id number] Transcribed By: Self Edit Transcribed Date: 08/25/2024 14:52 ET us Yeimy Hammond MD IM BI PROCEDURES Final Result * HIV Screening (02/15/2024) HIV Screening abstracted Historical Provider HEALTH MAINTENANCE Final Result * Hepatitis C Screening (02/15/2024) Hepatitis C Screening abstracted Historical Provider HEALTH MAINTENANCE Final Result * Depression Screening (01/26/2024) Depression Screening abstracted Historical Provider HEALTH MAINTENANCE Final Result * COLONOSCOPY (10/17/2022 8:44 AM EDT) Anatomical Region Laterality Modality Endoscopy Historical Provider GI~PROCEDURE ORDERABLES F inal Result from Last 3 Months or Most Recently Relevant to Health Maintenance Insurance [facility] [employer] Care Teams Headhunter Relationship Specialty Start Date End Date Yeimy Hammond MD [address] [place] [phone] PCP - General Internal Medicine 01/15/22
== END 2025-04-04 10:23 | disposition home or self-care (01) ==
LOC: HO.HSM 09:16
PROVIDERS: PCP Internal Medicine; Visit Provider Registered Nurse
DX: G43.909 Migraine, unspecified, not intractable, without status migrainosus (principal); G44.209 Tension-type headache, unspecified, not intractable; G31.84 Mild cognitive impairment of uncertain or unknown etiology
CPT/HCPCS: 99214

== ENCOUNTER → 2025-04-04 09:16 | Outpatient (BNVA) | payer OTHER, SELFPAY | PROVIDERS: PCP Internal Medicine; Visit Provider Registered Nurse | DX: G43.909 Migraine, unspecified, not intractable, without status migrainosus (principal); G44.209 Tension-type headache, unspecified, not intractable; G31.84 Mild cognitive impairment of uncertain or unknown etiology; Z79.899 Other long term (current) drug therapy | CPT/HCPCS: 99212 ==